=== PATIENT | female | born 1955 | race Caucasian/White ===

== ENCOUNTER 2022-07-28 07:54 | Outpatient (CLI) | payer MEDICARE, BC, SELFPAY ==
--- NOTE | 2022-07-28 08:15 | CRLHL7_ITS ---
For Patients: As a result of the Century Cures Act, medical imaging exams and procedure reports are released immediately into your electronic medical record. You may view this report before your referring provider. If you have questions, please contact your health care provider. Technique: Double-contrast esophagram performed after the uneventful administration of effervescent crystals and thick barium followed by thin barium. Fluoroscopy time 1 minute 23 second. Indication: Comparison: None. Findings: Esophagus: Mild decreased esophageal motility. No stricture or mass. No inflammation. Gastroesophageal reflux: Small sliding hernia with mild spontaneous reflux. Impression: Small sliding hiatal hernia with mild spontaneous reflux and mild esophageal dysmotility. Dictated by Albino An MD @ 07/28/2022 10:19:51 AM (Electronically Signed)
== END 2022-07-28 07:55 | disposition home or self-care (01) ==
PROVIDERS: PCP Internal Medicine; Visit Provider Surgery
DX: R13.10 Dysphagia, unspecified (principal); R11.2 Nausea with vomiting, unspecified; K21.9 Gastro-esophageal reflux disease without esophagitis; K44.9 Diaphragmatic hernia without obstruction or gangrene
CPT/HCPCS: 74221

== ENCOUNTER 2023-07-20 13:09 | Outpatient (CLI) | payer OTHER, MEDICARE, BC, SELFPAY ==
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
--- OUTSIDE RECORDS SUMMARY | 2023-08-02 17:20 | XMS_ITS | Encounter Summary ---
Author Name Unknown Organization [facility] Address [address] [place] [address] Phone Care Team Providers Care Supervisor Diagnostic Name Role Phone Unavailable Primary Care Provider Unavailabl e Encounter Details Date Type Department Care Team Description 08/02/2023 Documentation Only [facility] [address] [address] Salome Love, PANhan [address] [place] [address] Social History Tobacco Use Types Packs/Day Years [...] Coronavirus/COVID-19? No / Unsure 08/02/2023 9:13 AM CABLE INSTALLER REPAIRER documented as of this encounter Plan of Treatment Not on file documented as of this encounter Visit Diagnoses Not on filedocumented in this encounter Additional Health Concerns Infection Onset Date Last Indicated Resolved Time SARS-CoV-2 07/20/2023 07/20/2023 documented as of this encounter
--- OUTSIDE RECORDS SUMMARY | 2023-08-02 17:20 | XMS_ITS | Encounter Summary ---
Author Name Unknown Organization [facility] Address [address] [place] [address] Phone Care Team Providers Care Seam Press Operator Name Role Phone Unavailable Primary Care Provider Unavailabl e Encounter Details Date Type Department Care Team Description 08/02/2023 9:46 AM [facility] Hospital Encounter [facility] [address] [phone] Salome Love, PANhan [address] [place] [address] Arrived Discharge Disposition: Discharged to home or self [...] Coronavirus/COVID-19? No / Unsure 08/02/2023 9:13 AM PLASTER MECHANIC documented as of this encounter Plan of Treatment Pending Results Name Type Priority Associated Diagnoses Date /Time XR SPINE CERVICAL FLEX/EXT Imaging Routine Injury of neck, subsequent encounter 08/02/2023 9:55 AM PLASTER MECHANIC documented as of this encounter Procedures Procedure Name Priority Date/Time Associated Diagnosis Comments XR SPINE CERVICAL FLEX/EXT Routine 08/02/2023 9:55 AM PLASTER MECHANIC Injury of neck, subsequent encounter Procedure Note - Chito Michel MD / Baltazar Garnett MD - 08/02/2023 9:55 AM CSTThis note is in progress. Technique: XR SPINE CERVICAL FLEX/EXT Indication: c-spine clearance Comparison: Radiographs from 08/02/2023 and 07/21/2023 Findings: Stable grade 1 anterolisthesis of C3 on C4, stable minimalanterolisthesis of C4 on C5. Stable minimal retrolisthesis of C5 on C6.Stable vertebral alignment with no change in grade of anterolisthesis orretrolisthesis between flexion and extension. Diffuse degenerative changesmost notable for moderate disc space narrowing at C4-5 and C5-6 withdiffuse osteophytic spurring.Tiny metallic foreign bodies overlying themandible. IMPRESSION Impression: Stable anterolisthesis of C3 on C4 and C4 on C5, stableretrolisthesis of C5 on C6. No change in alignment between flexion andextension. Reading Radiologist: Chito Michel Reading Resident: Baltazar Garnett documented in this encounter Visit Diagnoses Diagnosis Injury of neck, subsequent encounter documented in this encounter Additional Health Concerns Infection Onset Date Last Indicated Resolved Time SARS-CoV-2 07/20/2023 07/20/2023 documented as of this encounter
--- OUTSIDE RECORDS SUMMARY | 2023-08-02 17:20 | XMS_ITS | Encounter Summary ---
Author Name Unknown Organization [facility] Address [address] [place] [id number] Phone Care Team Providers Care Adult Secondary Education Instructor Name Role Phone Unavailable Primary Care Provider Unavailabl e Encounter Details Date Type Department Care Team Description 08/02/2023 Travel Social History Tobacco Use Types Packs/Day Years [...] Coronavirus/COVID-19? No / Unsure 08/02/2023 9:13 AM HAND DRAWER IN documented as of this encounter Plan of Treatment Not on file documented as of this encounter Visit Diagnoses Not on filedocumented in this encounter Additional Health Concerns Infection Onset Date Last Indicated Resolved Time SARS-CoV-2 07/20/2023 07/20/2023 documented as of this encounter
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
--- OUTSIDE RECORDS SUMMARY | 2023-08-02 17:20 | XMS_ITS | Clinical Summary ---
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 in the right lower lobe and rightmiddle lobe, with mild septal thickening. No effusion or pneumothorax isseen. Abdomen and pelvis: No evidence for hepatic or splenic injury. Patient isstatus post cholecystectomy, with mild biliary dilatation that is likelyrelated to the postcholecystectomy state. Adrenals and pancreas are withinnormal limits. Punctate nonobstructing left kidney stone. Bilateral kidney cysts. Noevidence for kidney injury. No mesenteric hematoma, or abnormal bowel wall thickening. No free air orfree fluid. Mild colonic diverticulosis, without diverticulitis. Normalappendix. Normal caliber aorta with patent celiac artery and SMA. Skeletal structures: Dedicated spinal reconstructions are obtained andinterpreted separately. No acute chest wall or pelvic fracture is seen. IMPRESSION IMPRESSION: 1. No acute traumatic abnormalities. Spinal reconstructions areinterpreted separately. 3. Mild diffuse bronchial wall thickening, suggestive of COPD or asthma.Retained bronchial debris and infiltrates in the right lower lobe andright middle lobe are concerning for superimposed pneumonia. 3. Right upper lobe nodular scarring. If prior exams are not available, afollow- up chest CT in 6 months is suggested. 4. Incidental findings in the abdomen include punctate left kidney stone,colonic diverticulosis, and postcholecystectomy biliary dilatation. Reading Radiologist: Antonio Espinal Iker Horowitz MD RAD CT BODY * CT SPINE THORACIC NO IV CON (07/20/2023 2:53 PM [employer]) Anatomical Region Laterality Modality Thoracic Spine Computed Tomogra phy 07/20/2023 3:05 PM [employer] Impressions 07/20/2023 5:05 PM [employer] Impression: 1. No acute fracture/dislocation of the thoracic spine. 2. No acute fracture/dislocation of the lumbar spine. I have personally reviewed the image(s) and initial interpretation, and I agree with the findings as documented by the resident/fellow. Reading Radiologist: eClso Crawford Reading Resident: Rimma Sheikh Narrative 07/20/2023 5:05 PM [employer] Thoracic and Lumbar Spine CT Reconstructions Indication: ??Trauma (STAB) ??. Comparison: ??None Technique: Images of the thoracic and lumbar spine with axial, sagittal and coronal reconstructions were obtained from a CT examination of ??the chest and abdomen. Images were reviewed in a bone window. This is not additional radiation; these images are reconstructed from the chest/abdomen/pelvis CT Findings: Please refer to the chest/abdomen CT report for the findings on those examinations. Thoracic spine: There is no fracture or dislocation of the thoracic vertebrae. Mild right deviation of the mid thoracic spine, otherwise alignment is within normal limits. The spinal canal and the neural foramina bilaterally are grossly patent at all visualized levels. ??The visualized prevertebral and paravertebral soft tissues are unremarkable. Mild multilevel degenerative endplate changes and anterior osteophytes. Lumbar spine: There is no fracture or dislocation of the lumbar vertebrae. Alignment of the lumbar vertebrae appears within normal limits. There is no significant disc height narrowing at any level. ??The visualized prevertebral and paravertebral soft tissues are unremarkable. Probable perineural cysts bilaterally at S2. Partially visualized mild cervical spondylosis, please refer to dedicated cervical C-spine for further characterization. Findings on a level by level basis are as follows: T12-L1: No focal abnormality. L1-L2: ??No focal abnormality. L2-3: ??No focal abnormality. ?? L3-4: ??No focal abnormality. L4-5: No focal abnormality. ?? L5-S1: No focal abnormality. Procedure Note Celso Crawford MD - 07/20/[address] Reconstructions Indication: Trauma (STAB) . Comparison: None Technique: Images of the thoracic and lumbar spine with axial, sagittaland coronal reconstructions were obtained from a CT examination of thechest and abdomen. Images were reviewed in a bone window. This is notadditional radiation; these images are reconstructed from thechest/abdomen/pelvis CT Findings: Please refer to the chest/abdomen CT report for the findings on thoseexaminations. Thoracic spine: There is no fracture or dislocation of the thoracicvertebrae. Mild right deviation of the mid thoracic spine, otherwisealignment is within normal limits. The spinal canal and the neuralforamina bilaterally are grossly patent at all visualized levels. Thevisualized prevertebral and paravertebral soft tissues are unremarkable.Mild multilevel degenerative endplate changes and anterior osteophytes. Lumbar spine: There is no fracture or dislocation of the lumbar vertebrae.Alignment of the lumbar vertebrae appears within normal limits. There isno significant disc height narrowing at any level. The visualizedprevertebral and paravertebral soft tissues are unremarkable. Probableperineural cysts bilaterally at S2. Partially visualized mild cervical spondylosis, please refer to dedicatedcervical C-spine for further characterization. Findings on a level by level basis are as follows: T12-L1: No focal abnormality. L1-L2: No focal abnormality. L2-3: No focal abnormality. L3-4: No focal abnormality. L4-5: No focal abnormality. L5-S1: No focal abnormality. IMPRESSION Impression: 1. No acute fracture/dislocation of the thoracic spine. 2. No acute fracture/dislocation of the lumbar spine. I have personally reviewed the image(s) and initial interpretation, and Iagree with the findings as documented by the resident/fellow. Reading Radiologist: Celso Crawford Resident: Rimma Sheikh Iker Horowitz MD RAD CT NEURO * CT SPINE LUMBAR NO IV CON (07/20/2023 2:53 PM [employer]) Anatomical Region Laterality Modality Lumbar Spine Computed Tomogra phy 07/20/2023 3:05 PM [employer] Impressions 07/20/2023 5:05 PM [employer] Impression: 1. No acute fracture/dislocation of the thoracic spine. 2. No acute fracture/dislocation of the lumbar spine. I have personally reviewed the image(s) and initial interpretation, and I agree with the findings as documented by the resident/fellow. Reading Radiologist: Celso Crawford Resident: Rimma Sheikh Narrative 07/20/2023 5:05 PM [employer] Thoracic and Lumbar Spine CT Reconstructions Indication: ??Trauma (STAB) ??. Comparison: ??None Technique: Images of the thoracic and lumbar spine with axial, sagittal and coronal reconstructions were obtained from a CT examination of ??the chest and abdomen. Images were reviewed in a bone window. This is not additional radiation; these images are reconstructed from the chest/abdomen/pelvis CT Findings: Please refer to the chest/abdomen CT report for the findings on those examinations. Thoracic spine: There is no fracture or dislocation of the thoracic vertebrae. Mild right deviation of the mid thoracic spine, otherwise alignment is within normal limits. The spinal canal and the neural foramina bilaterally are grossly patent at all visualized levels. ??The visualized prevertebral and paravertebral soft tissues are unremarkable. Mild multilevel degenerative endplate changes and anterior osteophytes. Lumbar spine: There is no fracture or dislocation of the lumbar vertebrae. Alignment of the lumbar vertebrae appears within normal limits. There is no significant disc height narrowing at any level. ??The visualized prevertebral and paravertebral soft tissues are unremarkable. Probable perineural cysts bilaterally at S2. Partially visualized mild cervical spondylosis, please refer to dedicated cervical C-spine for further characterization. Findings on a level by level basis are as follows: T12-L1: No focal abnormality. L1-L2: ??No focal abnormality. L2-3: ??No focal abnormality. ?? L3-4: ??No focal abnormality. L4-5: No focal abnormality. ?? L5-S1: No focal abnormality. Procedure Note Celso Crawford MD - 07/20/[address] Reconstructions Indication: Trauma (STAB) . Comparison: None Technique: Images of the thoracic and lumbar spine with axial, sagittaland coronal reconstructions were obtained from a CT examination of thechest and abdomen. Images were reviewed in a bone window. This is notadditional radiation; these images are reconstructed from thechest/abdomen/pelvis CT Findings: Please refer to the chest/abdomen CT report for the findings on thoseexaminations. Thoracic spine: There is no fracture or dislocation of the thoracicvertebrae. Mild right deviation of the mid thoracic spine, otherwisealignment is within normal limits. The spinal canal and the neuralforamina bilaterally are grossly patent at all visualized levels. Thevisualized prevertebral and paravertebral soft tissues are unremarkable.Mild multilevel degenerative endplate changes and anterior osteophytes. Lumbar spine: There is no fracture or dislocation of the lumbar vertebrae.Alignment of the lumbar vertebrae appears within normal limits. There isno significant disc height narrowing at any level. The visualizedprevertebral and paravertebral soft tissues are unremarkable. Probableperineural cysts bilaterally at S2. Partially visualized mild cervical spondylosis, please refer to dedicatedcervical C-spine for further characterization. Findings on a level by level basis are as follows: T12-L1: No focal abnormality. L1-L2: No focal abnormality. L2-3: No focal abnormality. L3-4: No focal abnormality. L4-5: No focal abnormality. L5-S1: No focal abnormality. IMPRESSION Impression: 1. No acute fracture/dislocation of the thoracic spine. 2. No acute fracture/dislocation of the lumbar spine. I have personally reviewed the image(s) and initial interpretation, and Iagree with the findings as documented by the resident/fellow. Reading Radiologist: Celso Crawford Reading Resident: Rimma Sheikh Iker Horowitz MD RAD CT NEURO * CT SPINE CERVICAL NO IV CON (07/20/2023 2:53 PM [employer]) Anatomical Region Laterality Modality Cervical Spine Computed Tomogra phy 07/20/2023 2:52 PM [employer] Impressions 07/20/2023 3:26 PM [employer]PER[employer] Impression: ?? 1. No acute fracture or subluxation of the cervical vertebrae. 2. Multilevel cervical spondylosis without significant spinal canal narrowing; multilevel neural foraminal narrowing is of varying degrees of significance, as described. I have personally reviewed the image(s) and initial interpretation, and I agree with the findings as documented by the resident/fellow. Reading Radiologist: Volodymyr Dunbar Resident: Rimma Sheikh 07/20/2023 3:26 PM [employer] Exam: Cervical spine CT without contrast, 07/20/2023 Indication: Trauma (STAB). Comparison: ??None. Technique: Using multidetector thin collimation helical acquisition technique, axial, coronal and sagittal reconstructed CT images were obtained through the cervical spine without intravenous contrast. Images were reviewed in bone and soft tissue windows. Radiation dose: Total DLP = 80.9 mGy*cm. ?? Findings: No acute fracture, traumatic malalignment, or abnormal prevertebral soft tissue swelling. Chronic mild anterior wedging of the T3 vertebral body. Mild retrolisthesis of C5 over C6 and trace anterior spondylolisthesis of C3 over C4 and of C6 over C7 through T2 over T3. Multilevel disc space narrowing, endplate spurring, uncovertebral spurring, and degenerative changes of the facet joints. Atlantodental spurring. The findings on a level by level basis are as follows: C2-3: ??Minimal bilateral neural foraminal narrowing. No convincing spinal canal narrowing. C3-4: ??Mild bilateral neural foraminal narrowing. No convincing spinal canal narrowing. C4-5: ??At least moderate left neural foraminal narrowing. Minimal right neural foraminal narrowing. No spinal canal narrowing. C5-6: ??Mild right and mild to moderate left neural foraminal narrowing. No spinal canal narrowing. C6-7: ??Mild to moderate left neural foraminal narrowing. Minimal spinal canal narrowing. C7-T1: Minimal bilateral neural foraminal narrowing. No convincing spinal canal narrowing. No abnormality of the visualized paraspinous tissues. Scattered nodules in the upper lobes; nodular right apical atelectasis/scarring; please refer to the separately dictated report of a concurrently acquired CT of the chest, abdomen, pelvis for further details. Procedure Note Volodymyr Dunbar Harry, DO - 07/20/2023 Exam: Cervical spine CT without contrast, 07/20/2023 Indication: Trauma (STAB). Comparison: None. Technique: Using multidetector thin collimation helical acquisitiontechnique, axial, coronal and sagittal reconstructed CT images wereobtained through the cervical spine without intravenous contrast. Imageswere reviewed in bone and soft tissue windows. Radiation dose: Total DLP = 80.9 mGy*cm. Findings: No acute fracture, traumatic malalignment, or abnormalprevertebral soft tissue swelling. Chronic mild anterior wedging of the S2tawexdcdv body. Mild retrolisthesis of C5 over C6 and trace anteriorspondylolisthesis of C3 over C4 and of C6 over C7 through T2 over T3.Multilevel disc space narrowing, endplate spurring, uncovertebralspurring, and degenerative changes of the facet joints. Atlantodentalspurring. The findings on a level by level basis are as follows: C2-3: Minimal bilateral neural foraminal narrowing. No convincing spinalcanal narrowing. C3-4: Mild bilateral neural foraminal narrowing. No convincing spinalcanal narrowing. C4-5: At least moderate left neural foraminal narrowing. Minimal rightneural foraminal narrowing. No spinal canal narrowing. C5-6: Mild right and mild to moderate left neural foraminal narrowing. Nospinal canal narrowing. C6-7: Mild to moderate left neural foraminal narrowing. Minimal spinalcanal narrowing. C7-T1: Minimal bilateral neural foraminal narrowing. No convincing spinalcanal narrowing. No abnormality of the visualized paraspinous tissues. Scattered nodules inthe upper lobes; nodular right apical atelectasis/scarring; please referto the separately dictated report of a concurrently acquired CT of thechest, abdomen, pelvis for further details. IMPRESSION Impression: 1. No acute fracture or subluxation of the cervical vertebrae. 2. Multilevel cervical spondylosis without significant spinal canalnarrowing; multilevel neural foraminal narrowing is of varying degrees ofsignificance, as described. I have personally reviewed the image(s) and initial interpretation, and Iagree with the findings as documented by the resident/fellow. Reading Radiologist: Volodymyr Dunbar Resident: Rimma Sheikh Iker Horowitz MD RAD CT NEURO * CT HEAD NO IV CONTRAST (07/20/2023 2:53 PM [employer]) Anatomical Region Laterality Modality Skull Computed Tomogra phy 07/20/2023 2:45 PM [employer] OPER[employer] Impressions 07/20/2023 3:04 PM [employer] OPER[employer] Impression: No acute intracranial pathology. Marco Traumatic Brain Injury Scale: Diffuse Injury 1 MARCO DIAGNOSTIC CATEGORIES OF ABNORMALITIES VISUALIZED ON CT SCANNING FOR TRAUMATIC BRAIN INJURY: Diffuse Injury 1: No visible intracranial pathology seen on CT scan. Diffuse Injury 2: Cisterns are present with shift 0-5 mm and/or lesion densities present. No high or mixed density lesion >25ml. May include bone fragments and foreign bodies. Diffuse Injury 3 (swelling): Cisterns compressed or absent with shift 0-5mm. No high or mixed density lesion > 25ml. ? Diffuse Injury 4 (shift): Shift > 5mm. No high or mixed density lesion > 25ml. Evacuated mass lesion: Any surgically evacuated lesion. ?? Non evacuated mass lesion: High or mixed-density lesion > 25ml. Not surgically evacuated. I have personally reviewed the image(s) and initial interpretation, and I agree with the findings as documented by the resident/fellow. Reading Radiologist: Sue Lopez Resident: Rimma Sheikh Narrative 07/20/2023 3:04 PM [employer] Indication: Trauma (STAB) ??. Comparison: none Technique: Axial thin section CT images through the brain were obtained from the base of the skull through the vertex without intravenous contrast and reviewed in brain, bone and subdural windows. Dose Total DLP = 1004.8 mGy.cm. ?? Findings: There is no evidence of intracranial hemorrhage, mass effect, midline shift or abnormal extraaxial fluid collection. There is no definite evidence of acute infarction. The ventricles and sulci appear appropriate for age. Peña-white differentiation is normal throughout both cerebral hemispheres. Empty sella phenomenon. The bony calvarium and the bones of the skull base appear normal. Review of visualized dentition does not reveal significant periapical dental disease. The visualized portions of the paranasal sinuses and the mastoid air cells are clear. Procedure Note Sue Lopez MD - 07/20/2023 Indication: Trauma (STAB) . Comparison: none Technique: Axial thin section CT images through the brain were obtainedfrom the base of the skull through the vertex without intravenous contrastand reviewed in brain, bone and subdural windows. Dose Total DLP = 1004.8 mGy.cm. Findings: There is no evidence of intracranial hemorrhage, mass effect,midline shift or abnormal extraaxial fluid collection. There is nodefinite evidence of acute infarction. The ventricles and sulci appearappropriate for age. Peña-white differentiation is normal throughout bothcerebral hemispheres. Empty sella phenomenon. The bony calvarium and the bones of the skull base appear normal. Reviewof visualized dentition does not reveal significant periapical dentaldisease. The visualized portions of the paranasal sinuses and the mastoidair cells are clear. IMPRESSION Impression: No acute intracranial pathology. Marco Traumatic Brain Injury Scale: Diffuse Injury 1 MARCO DIAGNOSTIC CATEGORIES OF ABNORMALITIES VISUALIZED ON CT SCANNINGFOR TRAUMATIC BRAIN INJURY: Diffuse Injury 1: No visible intracranial pathology seen on CT scan. Diffuse Injury 2: Cisterns are present with shift 0-5 mm and/or lesiondensities present. No high or mixed density lesion >25ml. May include bonefragments and foreign bodies. Diffuse Injury 3 (swelling): Cisterns compressed or absent with shift0-5mm. No high or mixed density lesion > 25ml. Diffuse Injury 4 (shift): Shift > 5mm. No high or mixed density lesion >25ml. Evacuated mass lesion: Any surgically evacuated lesion. Non evacuated mass lesion: High or mixed-density lesion > 25ml. Notsurgically evacuated. I have personally reviewed the image(s) and initial interpretation, and Iagree with the findings as documented by the resident/fellow. Reading Radiologist: Sue Lopez Reading Resident: Rimma Sheikh Iker Horowitz MD RAD CT NEURO * (ABNORMAL) ED CHEMISTRY LABS(NA,K,CL,CO2,GLU,CREAT,CA-IONIZED,ANION GAP) (07/20/2023 2:39 PM [employer]) Pathologist [facility] Sodium 143 135 - 148 mEq/L [facility] Chloride 108 92 - 108 mEq/L [facility] AnGap 8 8 - 16 mEq/L [facility] Glucose 87 70 - 100 mg/dL [facility] ICA, Actual 4.80 4.40 - 5.20 mg/dL [facility] ICA, pH Corrected 4.59 4.40 - 5.20 mg/dL [facility] Creatinine 1.38(H) 0.50 - 1.00 mg/dL [facility] BICARB 27(H) 22 - 26 mEq/L [facility] eGFR (2020 CKD-EPI) 41(L) >=60 ml/min/1.7 3m2 [facility] Comment: The estimated glomerular filtration rate (eGFR) was calculated using the CKD-EPI 2020 creatinine equation, which does not include race as a factor. This equation is validated in individuals 18 years of age and older, and eGFR is normalized to a body surface area of 1.73m^2. Potassium 3.7 3.5 - 5.3 mEq/L [facility] Blood 07/20/2023 2:39 PM [employer] 07/20/2023 2:41 PM [employer] Iker Horowitz MD LABORATORY [facility] [place] [address] * ED HEMOGLOBIN TOTAL (ED ONLY) (07/20/2023 2:39 PM CHLORINE PLANT OPERATOR) Pathologist [facility] Hgb 13.0 11.5 - 15.7 g/dL [facility] Blood 07/20/2023 2:39 PM CHLORINE PLANT OPERATOR 07/20/2023 2:41 PM CHLORINE PLANT OPERATOR Iker Horowitz MD LABORATORY [facility] [place] [address] * ED INR (07/20/2023 2:35 PM CHLORINE PLANT OPERATOR) Pathologist [facility] ED INR 1.1 0.8 - 1.1 [facility] Comment: Warfarin Therapeutic Range: Standard Intensity: 2.0 - 3.0 High Intensity: 2.5 - 3.5 Blood 07/20/2023 2:35 PM CHLORINE PLANT OPERATOR 07/20/2023 2:40 PM CHLORINE PLANT OPERATOR Iker Horowitz MD LABORATORY Performing Organization Address [facility] de Phone Number [address] [address] * EXTRA TUBE - LIGHT GREEN (07/20/2023 2:35 PM CHLORINE PLANT OPERATOR) LIGHT GREEN TUBE Stored [facility] Comment:Green tubes ([place] Heparin) are stored in the lab for 3 days from the collection date. Blood 07/20/2023 2:35 PM CHLORINE PLANT OPERATOR 07/20/2023 2:41 PM CHLORINE PLANT OPERATOR Iker Horowitz MD LABORATORY Performing Organization Address [facility] de Phone Number [address] [address] * EXTRA TUBE - PEÑA (07/20/2023 2:35 PM CHLORINE PLANT OPERATOR) PEÑA TUBE Stored [facility] Comment:Peña top (Sodium alysia uride) tubes are stored in the lab for 3 days from the collection date. Blood 07/20/2023 2:35 PM CHLORINE PLANT OPERATOR 07/20/2023 2:41 PM CHLORINE PLANT OPERATOR Iker Horowitz MD LABORATORY Performing Organization Address [facility] de Phone Number [address] [address] * EXTRA TUBE - SST (07/20/2023 2:35 PM CHLORINE PLANT OPERATOR) SST TUBE Stored [facility] Comment:SST tubes (Serum Sep arator) are stored in the lab for 3 days from the collection date. Blood 07/20/2023 2:35 PM CHLORINE PLANT OPERATOR 07/20/2023 2:41 PM CHLORINE PLANT OPERATOR Iker Horowitz MD LABORATORY Performing Organization Address [facility]/ZIP Co de Phone Number [facility] [address] [address] * (ABNORMAL) CBC WITH PLTS/AUTO DIFF (07/20/2023 2:35 PM CHLORINE PLANT OPERATOR) WBC 8.67 4.00 - 10.00 k/cmm [facility] RBC 4.89 3.90 - 5.20 m/cmm [facility] Hgb 14.3 11.5 - 15.7 g/dL [facility] Hematocrit 45.5(H) 34.0 - 45.0 % [facility] MCV 93.0 80.0 - 100.0 fL [facility] MCH 29.2 25.0 - 32.0 pg [facility] MCHC 31.4 31.0 - 36.0 g/dL [facility] RDW 14.2 11.5 - 14.5 % [facility] Plt 241 150 - 400 k/cmm [facility] MPV 9.9 6.5 - 12.5 fL [facility] Automated Abs Neutrophil 6.29 1.70 - 6.50 k/cmm [facility] Comment:Preliminary ANC, Fin al Result to Follow Abs Immature Granulocyte 0.11(H) 0.00 - 0.09 k/cmm [facility] Comment:The Immature Granulo cyte Absolute count contains metamyelocytes and myelocytes. Abs Neutrophil 6.29 1.70 - 6.50 k/cmm [facility] Abs Lymphocyte 1.16 0.80 - 4.00 k/cmm [facility] Abs Monocyte 1.06(H) 0.20 - 1.00 k/cmm [facility] Abs Eosinophil 0.01 0.00 - 0.60 k/cmm [facility] Abs Basophil 0.04 0.00 - 0.20 k/cmm [facility] Toxic Gran Present [facility] Blood 07/20/2023 2:35 PM CHLORINE PLANT OPERATOR 07/20/2023 2:53 PM CHLORINE PLANT OPERATOR Iker Horowitz MD LABORATORY Performing Organization Address [facility]/ZIP Co de Phone Number [facility] [address] [address] * (ABNORMAL) FIBRINOGEN (07/20/2023 2:35 PM CHLORINE PLANT OPERATOR) Fibrinogen 775(H) 200 - 400 mg/dL [facility] Blood 07/20/2023 2:35 PM CHLORINE PLANT OPERATOR 07/20/2023 2:53 PM CHLORINE PLANT OPERATOR Iker Horowitz MD LABORATORY Performing Organization Address [facility] Co de Phone Number [address] [address] * (ABNORMAL) PTT (APTT) (07/20/2023 2:35 PM CHLORINE PLANT OPERATOR) APTT 41.6(H) 25.0 - 37.0 sec [facility] Blood 07/20/2023 2:35 PM CHLORINE PLANT OPERATOR 07/20/2023 2:53 PM CHLORINE PLANT OPERATOR Iker Horowitz MD LABORATORY Performing Organization Address [facility] de Phone Number [address] [address] * PRECAUTIONARY TUBE (07/20/2023 2:25 PM CHLORINE PLANT OPERATOR) Prec Tube Precautionary Blood Bank Specimen Received. [facility] Blood 07/20/2023 2:25 PM CHLORINE PLANT OPERATOR 07/20/2023 2:45 PM CHLORINE PLANT OPERATOR Iker Horowtiz MD LAB TRANSFUSION SERV ICES Performing Organization Address [facility] Co de Phone Number [address] [address] * ED US CRITICAL CARE (07/20/2023 2:18 PM CHLORINE PLANT OPERATOR) Anatomical Region Laterality Modality Ultrasound Narrative 07/20/2023 4:02 PM CHLORINE PLANT OPERATOR ED Critical Care Resuscitative Ultrasound ED Trauma eFAST Ultrasound Indications: Suspicion of Abdomen Fluid/Blood, Suspicion of Pneumothorax/Hemothorax, and Other general symptoms and signs Window: Cardiac Window, Heptorenal Window, Perisplenic Window, Pelvic Window, and Thoracic Window Findings: No Pericardial Effusion identified, No Free Intraperitoneal Fluid identified, No Pleural Effusion identified, and Lung Sliding Present Bilaterally Impression: No Pericardial Effusion identified, No Free Intraperitoneal Fluid identified, No Pleural Effusion identified, and No Pneumothorax Identified Felecia Daly MD, 07/20/2023 2:51 PM ED Attending Ultrasound Note: I have personally reviewed the image(s) and initial interpretation, and I agree with the findings as documented. Iker Horowitz MD, 07/20/2023 4:02 PM Iker Horowitz MD RAD ED ULT from Last 3 Months Additional Health Concerns Infection Onset Date Last Indicated SARS-CoV-2 07/20/2023 07/20/2023 Advance Directives For more information, please contact: [phone] Latest Code Status on File Code Status Date Activated Date Inactivated Comments Full Code 07/20/2023 5:04 PM 07/25/2023 4:13 PM Question Answer Comments Does the Patient have prefer ences regarding life sustaining measures (these options only apply when the patient has a pulse): No Discussed Code Status With Whom? Not discussed
--- OUTSIDE RECORDS SUMMARY | 2023-08-02 17:21 | XMS_ITS | Encounter Summary ---
Author Name Unknown Organization [facility] Address [address] [place] [phone] Phone Care Team Providers Care Art Educator Name Role Phone Unavailable Primary Care Provider Unavailabl e Encounter Details Date Type Department Care Team Description 07/21/2023 Orders Only Unspecified Department [place] Unknown, Provider Compression fracture of cervical vertebra with routine healing, unspecified cervical vertebral level (Primary Dx) Social History Tobacco Use Types Packs/Day Years Used Date Smoking Tobacco: Never Assessed Humiliation, Afraid, Rape, and Kick questionnair e [...] suspected to have Coronavirus/COVID-19? No / Unsure 07/20/2023 5:12 PM SENIOR CLINICIAN documented as of this encounter Plan of Treatment Not on file documented as of this encounter Procedures Procedure Name Priority Date/Time Associated Diagnosis Comments TELEMETRY STRIPS 07/21/2023 2:56 PM SENIOR CLINICIAN documented in this encounter Results * XR SPINE CERVICAL 3 VW UPRIGHT (08/02/2023 9:10 AM SENIOR CLINICIAN) Anatomical Region Laterality Modality Cervical Spine Digital Radiogra phy 08/02/2023 9:10 AM SENIOR CLINICIAN Impressions 08/02/2023 9:17 AM SENIOR CLINICIAN Impression: Apparent slight increase anterolisthesis of C3 on C4 and decrease retrolisthesis of C5 on C6 when compared to previous examination. Reading Radiologist: Holley Shabazz Narrative 08/02/2023 9:17 AM SENIOR CLINICIAN Technique: XR SPINE CERVICAL 3 VW UPRIGHT Indication: f/u NSGY clinic; cervical compression fx, Eyak J ?? Comparison: 07/21/2023 Findings: Apparent slight [...] Indication: f/u NSGY clinic; cervical compression fx, Eyak J Comparison: 07/21/2023 Findings: Apparent slight increased [...] previous examination. Reading Radiologist: Holley Shabazz Dony Trery MD RAD XRAY * TELEMETRY STRIPS (07/21/2023 2:56 PM SENIOR CLINICIAN) Narrative 07/21/2023 2:56 PM SENIOR CLINICIAN Ordered by an unspecified provider. Provider Unknown RAD ECHO documented in this encounter Visit Diagnoses Diagnosis Compression fracture of cervical vertebra with routine healing, unspecified cervical vertebral level- Primary Compression fracture of cervical vertebra with routine healing, unspecified cervical vertebral level documented in this encounter Additional Health Concerns Infection Onset Date Last Indicated Resolved Time SARS-CoV-2 07/20/2023 07/20/2023 documented as of this encounter
--- OUTSIDE RECORDS SUMMARY | 2023-08-02 17:21 | XMS_ITS | Encounter Summary ---
Author Name Unknown Organization [facility] Address [address] [place] [address] Phone Care Team Providers Care Emergency Management System Director Name Role Phone Unavailable Primary Care Provider Unavailabl e Encounter Details Date Type Department Care Team Description 07/21/2023 Orders Only Unspecified Department [place] Unknown, Provider Social History Tobacco Use Types Packs/Day Years [...] Coronavirus/COVID-19? No / Unsure 07/20/2023 5:12 PM CARVER AND CHECKERER SPECIALS documented as of this encounter Plan of Treatment Not on file documented as of this encounter Procedures Procedure Name Priority Date/Time Associated Diagnosis Comments TELEMETRY STRIPS 07/21/2023 1:02 AM CARVER AND CHECKERER SPECIALS documented in this encounter Results * TELEMETRY STRIPS (07/21/2023 1:02 AM CARVER AND CHECKERER SPECIALS) Narrative 07/21/2023 1:02 AM CARVER AND CHECKERER SPECIALS Ordered by an unspecified provider. Provider Unknown RAD ECHO documented in this encounter Visit Diagnoses Not on filedocumented in this encounter Additional Health Concerns Infection Onset Date Last Indicated Resolved Time SARS-CoV-2 07/20/2023 07/20/2023 documented as of this encounter
--- OUTSIDE RECORDS SUMMARY | 2023-08-02 17:21 | XMS_ITS | Encounter Summary ---
Author Name Unknown Organization [facility] Address [address] [place] [id number] Phone Care Team Providers Care Lead Software Architect Name Role Phone Unavailable Primary Care Provider Unavailabl e Encounter Details Date Type Department Care Team Description 07/20/2023 Travel Social History Tobacco Use Types Packs/Day [...] Coronavirus/COVID-19? No / Unsure 07/20/2023 5:12 PM MACHINE ETCHER documented as of this encounter Plan of Treatment Not on file documented as of this encounter Visit Diagnoses Not on filedocumented in this encounter Additional Health Concerns Infection Onset Date Last Indicated Resolved Time SARS-CoV-2 Rule-Out 07/20/2023 07/20/2023 07/20/20 4:49 PM MACHINE ETCHER SARS-CoV-2 07/20/2023 07/20/2023 documented as of this encounter
--- OUTSIDE RECORDS SUMMARY | 2023-08-02 17:21 | XMS_ITS | Encounter Summary ---
Author Name Unknown Organization [facility] Address [address] [place] [address] Phone Care Team Providers Care Adoption Coordinator Name Role Phone Unavailable Primary Care Provider Unavailabl e Encounter Details Date Type Department Care Team Description 07/20/2023 Orders Only Unspecified Department [place] Unknown, [...] Coronavirus/COVID-19? No / Unsure 07/20/2023 5:12 PM DAIRY CHEMIST documented as of this encounter Plan of Treatment Not on file documented as of this encounter Procedures Procedure Name Priority Date/Time Associated Diagnosis Comments TELEMETRY STRIPS 07/20/2023 6:46 PM DAIRY CHEMIST documented in this encounter Results * TELEMETRY STRIPS (07/20/2023 6:46 PM DAIRY CHEMIST) Narrative 07/20/2023 6:46 PM DAIRY CHEMIST Ordered by an unspecified provider. Provider Unknown RAD ECHO documented in this encounter Visit Diagnoses Not on filedocumented in this encounter Additional Health Concerns Infection Onset Date Last Indicated Resolved Time SARS-CoV-2 Rule-Out 07/20/2023 07/20/2023 07/20/20 23 4:49 PM DAIRY CHEMIST SARS-CoV-2 07/20/2023 07/20/2023 documented as of this encounter
--- OUTSIDE RECORDS SUMMARY | 2023-08-02 17:21 | XMS_ITS | Encounter Summary ---
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 prescription pain medicine contains acetaminophen. -- Do not take more than one medicine that contains acetaminophen at a time. -- Do not take more of an acetaminophen-containing medicine than directed by your provider. Adults should not take more than 2 tablets at a time and no more than 3000 mg in a 24 hour period. For children, see label or package information or ask a pharmacist, and do not give more than 5 doses in 24 hours. -- Do not drink alcohol when taking medicines that contain acetaminophen. -- Stop taking your medication and seek medical help immediately if you: ---- Think you have taken more acetaminophen than directed ---- Have an allergic reaction such as swelling of the face, mouth, and throat, difficulty breathing, itching, or rash FOLLOW-UP APPOINTMENTS AND REFERRALS: Follow-up with Neurosurgery in 2 weeks TBI clinic referral Home Health referral HOME CARE REFERRALS AND INSTRUCTIONS: None READMISSION PLANNED WITHIN 30 DAYS OF HOSPITAL DISCHARGE: No I have personally spent more than 30 minutes in discharge coordination for this patient. Wendy Guardado PA-C, 07/25/2023 7:27 AM [employer] CELL[employer]ER documented in this encounter Discharge Instructions * Appointments* Shey Strong RN - 07/25/2023 7:16 AM MACHINE B[employer]ER AND CELLOPHANER To schedule or change an appointment: [phone] For questions about the TBI Outpatient Program: [phone] The TBI Outpatient Program is located on the 3rd floor of the [facility] ([facility]) located at [address] [place] [address]. Neurosurgery Clinic follow up made for 08/02/23 @ 09:30 AM Neurosurgery Clinic [phone] FOLLOW-UP Future Appointments Date Time Provider Department Center 08/02/2023 9:30 AM Dony Terry MD [facility] * Discharge Instr - Physical Therapy* Nicola Rose Chi, PT - 07/25/2023 10:57 AM MACH[employer] CELL[employer]ER The following are the precautions you need to follow given your recent neck surgery/injury. Please continue to follow these instructions until they are discontinued by your surgeon: -Do not lift/carry anything that is heavier than 5 to 10 lbs. -Avoid raising your arms above shoulder height because this will increase stress on your neck. -Avoid doing activities involving repeated pushing/pulling with your arms. -You must wear the neck collar at ALL times. -AVOID turning your neck. Make sure that whatever you do, your nose down to toes are all facing in the same direction for the well being of your neck. -AVOID bending your neck. -When lying on your back, be sure to use NO MORE than 1 pillow under your head. The following are symptoms you might experience as a result of your head injury: Unexplained fatigue- make sure you rest as need be, Nausea, Vomiting, Irritability, Double Vision, Light Sensitivity, Dizziness, Difficulties Concentrating, Getting easily Distracted, Memory problems, Vertigo (eg seeing things spinning), etc... IF you start seeing things spinning, particularly when changing positions- like when rolling in bed, getting in/out of bed or going sit to/from stand, contact your doctor and get a referral to see an outpatient vestibular physical therapist. These therapists can help resolve the vertigo usually within a few treatment sessions. Avoid doing activities that would cause your brain to get jostled around inside your skull like: -Running, Jogging, Jumping or Hopping. -Riding on rough terrain like going on an ATV ride or going boating on choppy skelton -Going trampolining Proper height for a walking device (e.g. Walker or cane). When you stand up, the top of the handle should be in line with your wrist. When doing the stairs, go up/down 1 foot at a time. Please make sure you have help in the stairs, make sure you wear the safety belt that we issued to you and make sure that your helper stands on the step BELOW you. -When going UP the stairs, your helper should stand BEHIND you. -When going DOWN the stairs, your helper should pin attacher FRONT of you. [employer] CE[employer]ER * Discharge Instr - Occupational Therapy* Erum Bailey OTR/Maikel - 07/23/2023 3:33 PM MACHINE [employer] AND CELL[employer]ER Images from the original note were not included. Traumatic Brain Injury Recommendations You have been diagnosed with a traumatic brain injury (TBI). TBI's can be mild, moderate or severe.A mild TBI is often called a concussion. Traumatic brain injuries can cause a variety of physical, cognitive, visual and emotional symptoms. It is important to understand these symptoms and how they can affect your ability to participate in daily activities. The following recommendations will help to keep you safe and promote recovery as you leave the hospital. Follow these recommendations until you are seen by providers in the TBI Outpatient Program: No driving No work or school (even if you skidway worker) No use of alcohol or drugs No strenuous exercise or contact sports (this includes running, bicycle riding, etc. Anything that causes you to sweat is too much activity) Things that you CAN do as long as they do not cause any new symptoms, or make symptoms you already have worse: Light activities like walking or stationary exercise bike with no sweating Short periods of screen time (phone, tablet, TV) Basic light household tasks (e.g. laundry, cooking) with frequent breaks or some help Follow-up Appointment: We recommend you follow-up in the TBI Outpatient Program a few weeks after you leave the hospital. If an appointment was not made for you, please call within one week. To schedule or change an appointment: [phone] For questions about the TBI Outpatient Program: [phone] The TBI Outpatient Program is located on the 3rd floor of the [facility] ([facility]) located at [address] [place] [address]. Common Signs and Symptoms of a Traumatic Brain Injury Symptoms after a TBI may show up immediately after the injury or sometimes develop over hours or days. Symptoms vary in how severe they are and the length of time that they last. Each person is different. This is very typical of TBI. Most symptoms will resolve within 4 weeks. Some of the most common symptoms which you may experience are listed below. Physical Symptoms Headache Dizziness/loss of balance Fatigue or drowsiness Difficulty sleeping Nausea or vomiting Incoordination Blurred or double vision Ringing of the ears Cognitive / Visual Symptoms Poor concentration Short term memory loss Difficulty finding the right word to say Difficulty understanding what others are saying Difficulty with multi-tasking Change in work/school performance Changes in vision / perception Emotional Symptoms Irritability Anxiety Depression Sudden emotional outbursts If you have a severe headache that gets worse or is accompanied by vomiting call 911 right away! How to Complete Your Self Cares with a Cervical Collar A Cervical Collar is a brace designed to immobilize your cervical spine during the healing process after a neck injury or surgery. Unless otherwise instructed by your doctor, your collar should be worn at all times. Any cares thatrequire you to remove the collar (washing/checking skin underneath, shaving, changing the pads) should be done lying completely flat in bed and without a pillow behind your head. Until your doctor says it???s ok: Do not lift > 5-10 pounds Do not raise your arms higher than shoulder level Do not twist or bend your neck any time the collar is off for cares Grooming Tips When brushing your teeth at the sink, it can be helpful to tuck a washcloth between your chin and collar to keep the collar padding dry. You will need to lay flat in bed to take the collar off to shave. Place an open towel behind your head before lying down to catch hairs that may fall. You may need assist or to use an electric razor.Do not tilt your head back or turn your head. If you have long hair, you may prefer to have your hair out of the brace when putting it on. You may prefer to wear your hair in a ponytail at a height above the back edge of the collar. Bathing If a Rachel collar (haskins/foam collar) was given to you, you can use this collar when in the shower. Change into this collar lying flat in bed (see ???Putting the Collar On?? above). If you wear your padded collar in the shower, you will need to change to dry pads after you are done showering. You may want to wash and dry the skin under the collar when it is removed to change the pads. Changing the Collar Pads You will be lying flat in bed when changing the collar pads as your collar will need to be removed.Do not turn your head, or tuck or lift your chin, when the collar is off. Your collar pads should be changed at least 1 time per day. They can be changed more frequently if they become wet or soiled. If you need additional/new collar pads, contact the orthotic company that provided your collar. When changing the collar pads, it is helpful to only remove one at a time to avoid confusion on correct pad placement. To clean your collar pads, rinse with water and mild soap. Make sure the soap is thoroughly rinsed.Wring out excess water and hang to dry. Taking the Collar Off You may need another person to assist you in taking off the collar. Your therapist will help you learn to take off the collar with as little help as possible. Lie flat on the bed without any blankets or pillows behind your shoulders, neck and head. Unfasten the Velcro on the sides of the collar. Have the person assisting you place their hand between the collar and the back of your head/neck. Push the collar into the mattress and slide the collar to the side and out from under your head/neck.DO NOT lift your head up as they are sliding the brace out. Putting the Collar On You may need another person to assist you in putting on the collar. Your therapist will help you learn to put on the collar with as little help as possible. You should already be lying flat on the bed with no blankets or pillows behind your shoulders, neckand head. Have the person assisting you push the back piece of the collar down into the bed and slide their hand and the collar behind your head and neck, then slide their hand out leaving the back piece of the collar behind your head and neck. DO NOT lift your head up as they are sliding the brace out. Adjust the position of the back piece so it is centered behind your neck. Place the front piece over your neck resting just under and touching your chin. Secure the Velcro straps on both sides of the collar; the edge of the back piece will slightly overlap the front piece on each side. The collar should be snug and restrict your ability to bend your chin toward your chest, bend your neck to the side and turn your head from [id number]. [employer]ER * Discharge Instr - Speech Language Pathology* Darcy Epperson, ATHLETIC COORDINATOR [facility] - 07/25/2023 12:53 PM MACHINE [employer]ER AND CELLOPHANER Speech-language pathologists (med peds) assess and treat speech, language, cognition (thinking) and swallowing disorders in children and adults. Dysphagia Discharge Instructions You were seen by our service during your hospital admission for concerns about swallowing and your ability to eat and drink safely. Dysphagia: Difficulty or discomfort with swallowing. Recommendations: Diet: We recommend a Easy to Chew (IDDSI 7) with thin Easy to chew diet: This diet includes soft/tender and moist textures. Foods that are restricted include: Foods that are hard, tough, chewy, fibrous, stringy textured, contain seeds, bones or gristle.Examples of foods to avoid: nuts, raw vegetables, steak, pineapple, hard candies, pumpkin seeds, raw carrot or apples. Medications: Medications with thin liquid Oral Cares: [place] teeth 2x daily Swallowing Strategies: Small sips/bites Alternate liquids with solids Warning Signs: Signs that you or your loved one is having trouble swallowing: Persistent cough, throat clear, or wet-sounding voice during meals. Increased lung congestion, fever Difficulty handling saliva If you see any of these signs, contact your doctor. FOLLOW-UP: No further speech pathology follow-up is recommended at this time. If you have any questions: contact your primary Speech-Language Pathologist directly or call [phone]. Thank you. INE [employer] CELL[employer]HANER documented in this encounter Medications at Time of Discharge Medication Sig Dispensed Refills Start Date End Date loperamide (IMODIUM) 2 mg oral capsule Take 1 capsule (2 mg) by mouth every 3 hours as needed for Diarrhea. 30 capsule 0 07/25/2023 melatonin 3 mg oral tablet Take 1 tablet (3 mg) by mouth every twenty-four hours. 30 tablet 0 07/25/2023 acetaminophen 325 mg oral tablet Take 2 tablets (650 mg) by mouth 3 times daily. 60 tablet 0 07/25/2023 traMADol (ULTRAM) 50 mg oral tablet Take 1 tablet (50 mg) by mouth every 8 hours as needed for Pain. 0 mirtazapine (REMERON) 15 mg oral tablet Take 1 tablet (15 mg) by mouth at bedtime. 0 lamoTRIgine (LAMICTAL) 100 mg oral tablet Take 1 tablet (100 mg) by mouth daily. 0 GABApentin (NEURONTIN) 300 mg oral capsule Take 1 capsule (300 mg) by mouth 3 times daily. 0 famotidine (PEPCID) 20 mg oral tablet Take 1 tablet (20 mg) by mouth twice daily. 0 fluticasone propionate (FLONASE) 50 mcg/act nasal suspension 2 sprays by Nasal route daily. 0 guaiFENesin (ROBITUSSIN) 200 mg/10mL oral Take 5 mL (100 mg) by mouth every 4 hours as needed for Cough. 0 levothyroxine (SYNTHROID) 75 mcg oral tablet Take 1 tablet (75 mcg) by mouth daily before morning meal. 0 topiramate (TOPAMAX) 25 mg oral tablet Take 1 tablet (25 mg) by mouth at bedtime. 0 albuterol (VENTOLIN HFA;PROVENTIL HFA;PROAIR) 108 (90 BASE) mcg/act inhalation inhaler Inhale 2 puffs every 4 hours as needed (SOB). 0 benzonatate (TESSALON) 100 mg oral capsule Take 1 capsule (100 mg) by mouth 3 times daily as needed. 0 baclofen (LIORESAL) 10 mg oral TABS Take 1 tablet (10 mg) by mouth at bedtime as needed. 0 budesonide-formoterol (SYMBICORT) 160-4.5 mcg/puff inhalation inhaler Inhale 2 puffs twice daily. 0 hydrOXYzine (ATARAX;VISTARIL) 10 mg oral TABS Take 1 tablet (10 mg) by mouth 3 times daily as needed for Itching. 0 lidocaine 5 % externally ointment Apply to skin 3 times daily as needed. 0 naproxen sodium (ALEVE) 220 mg oral tablet Take 2 tablets (440 mg) by mouth twice daily. 0 ondansetron (ZOFRAN) 4 mg oral TABS Take 1 tablet (4 mg) by mouth 3 times daily as needed for Nausea/Vomiting. 0 SUMAtriptan (IMITREX) 100 mg oral tablet Take 1 tablet (100 mg) by mouth twice daily as needed (migraine). 0 acetaminophen 325 mg oral tablet Take 1 tablet (325 mg) by mouth every 6 hours as needed for Mild Pain or Moderate Pain. 100 tablet 0 07/21/2023 cefUROXime (CEFTIN) 500 mg oral TABS Take 1 tablet (500 mg) by mouth twice daily for 3 doses. 3 tablet 0 07/25/2023 07/27/2023 documented as of this encounter Progress Notes * Candelaria Mejia, RN - 07/25/2023 1:02 PM CST DISCHARGE NOTE D: Patient has been discharged. A: (As documented in the Discharge Planning Flowsheet) Discharge Instructions (AVS): AVS given Discharge clothing/valuables: has adequate clothing Discharge medications: patient received medications Home equipment status: no equipment needed Home equipment/supplies recommended: none Final discharge destination: Home or self care R: The patient and family understood the AVS. P: Support patient and family if they call back with questions. Candelaria Mejia, RN, 07/25/2023 1:03 PM INE [employer] AND CELL[employer]ER * Nicola Rose Chi, PT - 07/25/2023 11:02 AM CST Problem: Decreased Ambulatory Skills Goal: Improve gait Description: Ambulate 50 meters using Front - wheeled walker or LRAD with (6) Modified [place] order to ambulate around his home by 08/10/23 . Outcome: In progress Goal: Improve gait on stairs Description: Ascend/descend 4 stairs using No assistive devices with (6) Modified [place] in order to get into her home by 08/10/23. Outcome: In progress Problem: Decreased Transfer Skills Goal: Patient will transfer supine to/from sit Description: Patient will transfer supine to/from sit with (6) Modified [place] in order to get out of a flat bed at home by 08/10/23. Outcome: Condition changed, goal no longer applicable Problem: Decreased Transfer Skills Goal: Patient will transfer sit to/from stand Description: Patient will transfer sit to/from stand with (6) Modified [place] and use of FWW in order to prepare for ambulation by 08/10/23. Outcome: Met Physical Therapy Progress Note PT Discharge Recommendations Discharge Recommendations: Safe for discharge to home/community/prior residence Level/type of placement (PT): Sub-Acute Rehab facility Barriers to placement (PT): (No need for placement) Barriers to discharge to home/community: None - Patient is safe to DC from PT standpoint If discharging to home, would need: Supervision when mobilizing (SBA for negotiating stairs) Post discharge follow-up: Home PT recommended to address * (for home safety evaluation, continued gait, stair training and general physical conditioning.) Equipment Status: Equipment issued;Patient will provide own equipment PT Equipment Recommended: Cane (walking stick and 4ww- Has all of these. Issued patient a gait belt.) PM&R Recommended: * (No) S: Pain Pain Rating With Activity (Numeric): (Typical neuropathic pains from knees to toes and in hands as well. 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 Has had BPPV as a result and has undergone o/p PT BPPV treatment as well. Reports having had BPPV in both ears. Lives w her and 1 dog in a house. Her is able to help 12/02. He's taken care of her after GB surgery w complications. Has 3 outdoor platform steps w 1 HR to enter her home via the basement. Needs to do 15 steps to get up to the main floor. She was Mod I for going up the stairs, however, she chooses to get from the main floor to the basement by going via outside instead, so that shecan bypass having to go down the steps which she's afraid to do b/c she's fallen in the stairs before. Sleeps in a rocker/recliner that can go relatively flat. Inside the house, she may walk w no AD,a walking stick, cane or 4ww, depending on how she feels. She does not have a 2ww. She usually usesher walking stick for ambulation outside her home. Feels she can catch her balance more readily w the walking stick than the cane. O:Head Turning Machine Operator Used: None needed Mental Status Mental Status: Alert;Cooperative Follows Directions: Consistently follows commands Delirium Assessment - CAM Short (Confusion Assessment Method) Acute onset OR fluctuating course: No Inattention: No Disorganized Thinking: No Altered level of consciousness: No CAM result: Negative Restrictions/Precautions Weight Bearing Restrictions: None Precautions: Cervical Spine Precautions ([place] J collar on at all times.) Vital Signs 07/24/2023 1653 07/24/2023 2212 07/25/2023 0919 BP: 117/83 128/75 111/70 Patient Position for BP: Sitting Lying Down Sitting Pulse: 79 72 93 SpO2: 96 % 97 % 96 % Transfer & Bed Mobility Supine to/from Sit: Modified independent (Supine w HOB up 40 degs to Sit on L side of bed- Note: Ptsleeps in a recliner at baseline.) Sit to/from Stand: Modified independent (from EOB without AD, Stand/Sit on high toilet w/s using grab bar to L- Mod I without AD) -Toiletting in sitting- Mod I -Donning pull up- Initially in sitting, then in standing- Mod I. -Went over her C-spine precautions. Patient asked why she needed to wear the [place] J collar. I toldher why. -Went over the symptoms she might experience d/t her concussion. Note: Pt is well aware of concussive symptoms d/t h/o multiple concussions in the past. -Also warned patient about importance of quarantining d/t Covid for 5 days from the day she was diagnosed w Covid. Gait Distance (m): 13 m (and 4m- Did 2x each, without AD- Mod I. 45m- Did 2x w SEC in L hand- Mod I.) Device: None;Cane Assistance: Modified independent Gait Quality (General): WNL (Slight wavering to the R when walking without AD.) Tends to look down at the floor to ensure she won't trip on anything d/t her neuropathy. -Instructed patient on how to adjust a walking device to the correct height. Stairs Number of Steps: 5 up w HR on R, SEC on L- Non alternating- SBA. 5 down w HR on L, SEC on R- Non alternating- SBA/CGA mostly b/c of patient's fear of falling. Stair Rails: Right rail;Left rail Stairs : Stand by assist (SBA/CGA) Stairs Method: Ascend step-to pattern;Descend step-to pattern Sitting Static Balance Level of Assistance: Independent (Sitting on EOB) Interdisciplinary Communication PA/CLOTH BRUSHING AND SUEDING SUPERVISOR: Texted to inform that patient was safe to d/c home w home PT. RN: Asked to d/c IV to facilitate PT. Clinical Coordinator: Asked if referral to home PT was sent. Fall Risk Assessment: None of the above Positioning: Was walking about her room when I left. Treatment rendered: Gait training;Transfer training;Bed mobility training (Functional Activity) Total treatment time: 60 minutes A: Patient is mentating normally now. Was able to give me a clear social history today. Has made excellent progress w her functional mobility. She's mod I for ambulation without an AD for short distances and w SEC for short to intermediate distances. She should have SBA/CGA to negotiate stairs, mostly b/c of her fear of falling +/- neck precautions. I went over her neck precautions w her and did a post-concussion review with her. She's safe to d/c home when medically ready w help from her for IADLs and for negotiating stairs. She's benefit from home PT for a home safety evaluation, continued gait/stair training and general physical conditioning. P: D/c from in-patient PT. Nicola Rose, PT 07/25/2023 Pager: [phone]+ PT Dept [employer]E [employer] CELL[employer]HANER * Shey Strong RN - 07/24/2023 2:44 PM CST Images from the original note were not included. Problem: Discharge Planning Goal: Patient/Family Goals for Discharge Outcome: In progress ADDENDUM (16:30) Odd Bundle Worker received a VM from [facility] , with intake [facility], reported : received [facility] referral and referral is under review. Will notify patient to arrange for visit if accepted. If denied, [facility] contact physician underwriter . Shey Strong, RN, 07/25/2023 7:35 AM Care Management Follow-up Note Patient Name: Viviane Iraheta Date: 07/24/2023 Patient/Family Discharge Goals: home with agreeable with home care services, with [facility] Discharge Destination Expected Discharge Date: 07/25/2023 Time: Potential Discharge within 24 Hours: Discharge plan: Above plan of care was created and discussed with team, patient and is consistent with patient???s overall goals of care. Current Discharge Placement Information: Continued Care and Services - Admitted Since 07/20/2023 Destination Coordination has not been started for this encounter. Home Medical Care Service Provider Request Status Selected Services Address Phone Fax Patient Preferred [facility] Considering Need clinical review N/A [address] [facility] [address] [phone] Current Capacity last updated by Millie Simms, PT on 06/01/2023 0814 physician underwriter faxed [facility] referral and supporting documents , patient active with [facility] Comment last updated by Shey Strong RN 07/24/2023 2003 Odd Bundle Worker contacted intake [facility] [phone] to send HH referral for review. Informed all referrals go through [place] [facility] . Odd Bundle Worker notified by provider, patient has has [facility] in [place] and would like same agency . Odd Bundle Worker fax [phone] to intake : Attn for [facility]. Odd Bundle Worker will update patient. Shey Strong RN, 07/24/2023 2:43 PM Summary of pertinent information: Odd Bundle Worker notified by provider, patient likely home discharge with [facility], per provider, patient has had home health through [facility] out of [place]. Refer to provider's progress note for FULL hospital course presentation. Odd Bundle Worker contacted intake [facility] [phone] to send HH referral for review. Informed all referrals go through [place]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 BANDER AND CELL[employer]HANER PC GASES,BLOOD,ANY COMB OF PH,PCD2,PO2,CO2,HCO2 STAT 07/22/2023 9:30 AM MACHINE [employer] AND CELL[employer]ER POC GLUCOSE Routine 07/22/2023 9:29 AM MACHINE [employer] AND CE[employer]HANER PANEL BASIC METABOLIC (BMP) Routine 07/22/2023 6:12 AM MACHINE [employer]ANDER AND CELLOPHANER TC LAB BLOOD DRAW BY VENIPUNCTURE Routine 07/22/2023 6:12 AM MACHINE [employer] AND [employer]ER POC GLUCOSE Routine 07/22/2023 12:11 AM MACHINE [employer]ER AND CELL[employer]HANER XR SPINE CERVICAL 2 VW UPRIGHT Routine 07/21/2023 4:23 PM MACHINE [employer] AND CE[employer]ER PHOSPHORUS Routine 07/21/2023 7:55 AM MACHINE [employer] AND CELL[employer]HANER PANEL BASIC METABOLIC (BMP) Routine 07/21/2023 7:55 AM MACHINE [employer] AND CELL[employer]HANER MAGNESIUM Routine 07/21/2023 7:55 AM MACHINE BANDER AND CELLOPHANER TC LAB BLOOD DRAW BY VENIPUNCTURE Routine 07/21/2023 7:55 AM MACHINE [employer]ANDER AND CELL[employer]HANER PC TROPONIN QUANTITATIVE Timed 07/20/2023 7:01 PM MACHINE BANDER AND CELL[employer]HANER PC LAB COMPLETE UA STAT 07/20/2023 6: 47 PM MACHINE [employer] AND [employer]HANER XR CHEST 1 VIEW AP OR PA* STAT 07/20/2023 5:53 PM MACHINE [employer] AND [employer]ER COVID/FLU COMBO STAT 07/20/2023 4:20 PM MACHINE [employer]ER AND CELL[employer]HANER ED EKG (12-LEAD) Routine 07/20/2023 3:37 PM MACHINE [employer] AND CE[employer]ER XR ELBOW RIGHT 3/4 VIEWS* STAT 07/20/2023 3:05 PM MACHINE [employer] AND CELL[employer]HANER XR FOREARM RIGHT 2 V AP + LAT* STAT 07/20/2023 3:04 PM MACHINE [employer] CT CHEST/ABD/PELVIS W/IV CONT STAT 07/20/2023 2:54 PM MACHINE [facility] [employer] CT SPINE THORACIC NO IV CON STAT 07/20/2023 2:53 PM MACH[facility] CT SPINE LUMBAR NO IV CON STAT 07/20/2023 2:53 PM MACH[facility] CT SPINE CERVICAL NO IV CON STAT 07/20/2023 2:53 PM MACHINE B[employer] [employer] CT HEAD NO IV CONTRAST STAT 2:53 PM MACHINE [employer] AND CELL[employer]HANER XR CHEST 1 VIEW AP OR PA* STAT 07/20/2023 2:48 PM MACHINE BANDER AND CELL[employer]HANER PC ELECTROLYTES PANEL STAT 07/20/2023 2:39 PM MACHINE BANDER AND CELLOPHANER TC LAB ER STAT TOTAL HGB STAT 07/20/2023 2:39 PM MACHINE BANDER AND CELLOPHANER PC LACTATE (LACTIC ACID) STAT 07/20/2023 2:39 PM MACHINE BANDER AND CELL[employer]HANER PC GASES,BLOOD,ANY COMB OF PH,PCD2,PO2,CO2,HCO2 STAT 07/20/2023 2:39 PM MACHINE BANDER AND CELLOPHANER PC LAB ED INR STAT 07/20/2023 2:35 PM MACHINE [employer] AND CELL[employer]HANER EXTRA TUBE - LIGHT GREEN Routine 07/20/2023 2:35 PM MACHINE [employer]ANDER AND CELL[employer]HANER EXTRA TUBE - PEÑA Routine 07/20/2023 2:3 5 PM MACHINE BANDER AND CELLOPHANER TC LAB BLOOD DRAW BY VENIPUNCTURE Routine 07/20/2023 2:35 PM MACHINE BANDER AND CELL[employer]ER PC TROPONIN QUANTITATIVE STAT 07/20/2023 2:35 PM MACHINE BANDER AND CELLOPHANER PC LAB CBC W/DIFF & PLT STAT 07/20/20 2:35 PM MACHINE [employer] AND CELL[employer]HANER PANEL HEPATIC FUNCTION Routine 2:35 PM MACHINE [employer] AND [employer]ER FIBRINOGEN STAT 07/20/2023 2:35 PM MACHINE BANDER AND CELLOPHANER PC LAB PTT STAT 07/20/2023 2:35 PM MACHINE [employer] AND CE[employer]ER PRECAUTIONARY TUBE STAT 07/20/2023 2: 25 PM MACHINE BANDER AND CELLOPHANER ED US CRITICAL CARE STAT 07/20/2023 2 :18 PM MACHINE [employer] AND [employer]ER documented in this encounter Results * (ABNORMAL) MAGNESIUM (07/25/2023 4:49 AM MACHINE BANDER AND CELLOPHANER) Magnesium 1.5(L) 1.6 - 2.4 mg/dL [facility] Blood 07/25/2023 4:49 AM MACHINE [employer] AND CE[employer]ER 07/25/2023 5:46 AM MACHINE [employer]AND[employer] AND CELL[employer]ER Wendy Guardado PA-C LABORATORY [facility] [address] [address] * PHOSPHORUS (07/25/2023 4:49 AM MACHINE BANDER AND CELLOPHANER) Phosphorus 2.8 2.5 - 4.5 mg/dL [facility] Blood 07/25/2023 4:49 AM MACHINE [employer] AND CE[employer]ER 07/25/2023 5:46 AM MACHINE [employer] AND CELL[employer]ER Wendy Guardado PA-C LABORATORY Performing Organization Address City/[facility]/ZIP Co de Phone Number [facility] [address] [address] * (ABNORMAL) PANEL BASIC METABOLIC (BMP) (07/25/2023 4:49 AM MACHINE BANDER AND CELLOPHANER) Sodium 145 135 - 148 mEq/L [facility] Potassium 3.5 3.5 - 5.3 mEq/L [facility] Chloride 113(H) 92 - 108 mEq/L [facility] CO2 23 22 - 30 mEq/L [facility] AnGap 9 8 - 16 mEq/L [facility] Glucose 85 70 - 100 mg/dL [facility] BUN 8 8 - 23 mg/dL [facility] Creatinine 1.02(H) 0.50 - 1.00 mg/dL [facility] Calcium 8.3(L) 8.8 - 10.2 mg/dL [facility] eGFR (2020 CKD-EPI) 60 >=60 ml/min/1.7 3m2 [facility] Comment: The estimated glomerular filtration rate (eGFR) was calculated using the CKD-EPI 2020 creatinine equation, which does not include race as a factor. This equation is validated in individuals 18 years of age and older, and eGFR is normalized to a body surface area of 1.73m^2. Blood 07/25/2023 4:49 AM MACHINE [employer]ER AND CELL[employer]HANER 07/25/2023 5:46 AM MACHINE [employer]ER AND CELL[employer]HANER Wendy Guardado PA-C LABORATORY Performing Organization Address City/[facility]/ZIP Co de Phone Number [facility] [address] [address] * (ABNORMAL) POTASSIUM (07/24/2023 8:00 PM MACHINE BANDER AND CELLOPHANER) Potassium 3.1(L) 3.5 - 5.3 mEq/L [facility] Blood 07/24/2023 8:00 PM MACHINE [employer]ER AND CELL[employer]ER 07/24/2023 8:14 PM MACHINE B[employer]ER AND CELLOPHANER Wendy Guardado PA-C LABORATORY Performing Organization Address [facility] Co de Phone Number [facility] [address] [address] * PHOSPHORUS (07/24/2023 8:00 PM MACHINE BANDER AND CELLOPHANER) Phosphorus 3.0 2.5 - 4.5 mg/dL [facility] Blood 07/24/2023 8:00 PM MACHINE [employer] AND CE[employer]ER 07/24/2023 8:14 PM MACHINE [employer]ER AND CELL[employer]HANER Wendy Guardado PA-C LABORATORY Performing Organization Address [facility] de Phone Number [facility] [address] [address] * RESPIRATORY CULTURE (07/24/2023 11:37 AM MACHINE BANDER AND CELLOPHANER) Final Report Specimen unacceptable for ROUTINE BACTERIAL culture. Patient account credited. [facility] Gram Stain Report Less than 10 PMN's/low power field. 10 to 25 epithelial cells /low power field. Few mixed konrad. The epithelial cells indicate contamination. Suggest recollect specimen. Result called to and read back by: Skip Fernandez RN @ ??07/24/2023 14:19:15 by Sienna Gonzales [facility] Sputum 07/24/2023 11:3 7 AM MACHINE [employer]ER AND CELL[employer]HANER 07/24/2023 11:59 AM MACHINE BANDER AND CELLOPHANER Narrative [facility] - 07/25/2023 6:50 AM MACHINE [employer]ER AND CELL[employer]HANER Patient account credited for culture 07/24/23 by [id number] Volodymyr Nicholas MD LAB MICROBIOLOGY Performing Organization Address [facility] Co de Phone Number [facility] [address] [address] * XR CHEST 2 VIEWS PA + LAT* (07/24/2023 11:29 AM MACHINE BANDER AND CELL[employer]HANER) Anatomical Region Laterality Modality Chest Computed Radiogr aphy 07/24/2023 11:3 7 AM MACHINE [employer]ER AND CELL[employer]HANER Impressions 07/24/2023 11:38 AM MACHINE [employer]ANDER AND CELL[employer]HANER Impression: Chronic interstitial coarsening. No acute airspace opacity identified. Reading Radiologist: Steven Millan Narrative 07/24/2023 11:38 AM MACHINE [employer]ANDER AND CELL[employer]HANER Technique: XR CHEST 2 VIEWS PA + [...] Millan Leandro Villalobos MD RAD XRAY * (ABNORMAL) PHOSPHORUS (07/24/2023 8:54 AM MACHINE BANDER AND CELLOPHANER) Phosphorus 1.7(L) 2.5 - 4.5 mg/dL [facility] Blood 07/24/2023 8:54 AM MACHINE BANDER AND CELL[employer]HANER 07/24/2023 9:34 AM MACHINE BANDER AND CELLOPHANER Jag Guardado APRN, CNP LABORATORY Performing Organization Address City/[facility] Co de Phone Number [facility] [address] [address] * MAGNESIUM (07/24/2023 8:54 AM MACHINE BANDER AND CELLOPHANER) Magnesium 1.7 1.6 - 2.4 mg/dL [facility] Blood 07/24/2023 8:54 AM MACHINE B[employer]ER AND CELL[employer]HANER 07/24/2023 9:34 AM MACHINE B[employer]ER AND CELLOPHANER Jag Guardado APRN, CNP LABORATORY Performing Organization Address City/[facility] Co de Phone Number [facility] [address] [address] * (ABNORMAL) PANEL BASIC METABOLIC (BMP) (07/24/2023 8:54 AM MACHINE BANDER AND CELLOPHANER) Sodium 145 135 - 148 mEq/L [facility] Potassium 3.1(L) 3.5 - 5.3 mEq/L [facility] Chloride 109(H) 92 - 108 mEq/L [facility] CO2 24 22 - 30 mEq/L [facility] AnGap 12 8 - 16 mEq/L [facility] Glucose 90 70 - 100 mg/dL [facility] BUN 7(L) 8 - 23 mg/dL [facility] Creatinine 0.86 0.50 - 1.00 mg/dL [facility] Calcium 9.3 8.8 - 10.2 mg/dL [facility] eGFR (2020 CKD-EPI) 73 >=60 ml/min/1.7 3m2 [facility] Comment: The estimated glomerular filtration rate (eGFR) was calculated using the CKD-EPI 2020 creatinine equation, which does not include race as a factor. This equation is validated in individuals 18 years of age and older, and eGFR is normalized to a body surface area of 1.73m^2. Blood 07/24/2023 8:54 AM MACHINE [employer]ER AND CELLOPHANER 07/24/2023 9:34 AM MACHINE BANDER AND CELLOPHANER Jag Guardado APRN, CNP LABORATORY Performing Organization Address [facility] Co de Phone Number [address] [address] * MR BRAIN W/O + WITH CONTRAST (07/23/2023 10:49 AM MACHINE BANDER AND CELLOPHANER) Anatomical Region Laterality Modality Skull Magnetic Resonan ce 07/23/2023 10:4 9 AM MACHINE [employer]ER AND CELL[employer]HANER Impressions 07/23/2023 11:31 AM MACHINE BANDER AND CELLOPHANER Impression: 1. No acute intracranial findings. 2. No suspicious intracranial or extracranial enhancement, although limited assessment secondary to significant motion artifact. I have personally reviewed the image(s) and initial interpretation, and I agree with the findings as documented by the resident/fellow. Reading Radiologist: Alverto Townsend Reading Resident: Arturo Hobson Narrative 07/23/2023 11:31 AM MACHINE BANDER AND CELLOPHANER Brain MRI without and with contrast Indication: [...] resident/fellow. Reading Radiologist: Alverto Townsend Reading Resident: Arturo Hobson Jareth Joseph MD RAD MR NEURO * FERRITIN (07/23/2023 7:48 AM MACHINE BANDER AND CELLOPHANER) Ferritin 40.0 13.0 - 150.0 ng/mL [facility] Comment: Test Performed by: [facility] [address] [place] [id number] Blood 07/23/2023 7:48 AM MACHINE [employer]ER AND CELL[employer]HANER 07/23/2023 2:36 PM MACHINE B[employer]ER AND CELLOPHANER Jag Guardado APRN, CNP LABORATORY Performing Organization Address [facility] Co de Phone Number [facility] [address] [address] * IRON (07/23/2023 7:48 AM MACHINE BANDER AND CELLOPHANER) Iron 58 35 - 145 mcg/dL [facility] Blood 07/23/2023 7:48 AM MACHINE [employer]ER AND CELL[employer]HANER 07/23/2023 2:36 PM MACHINE [employer]ER AND CELLOPHANER Jag Guardado APRN, CNP LABORATORY Performing Organization Address [facility] de Phone Number [facility] [address] [address] * (ABNORMAL) PHOSPHORUS (07/23/2023 7:48 AM MACHINE BANDER AND CELLOPHANER) Phosphorus 1.1(AA) 2.5 - 4.5 mg/dL [facility] Comment:Critical Result Low Blood 07/23/2023 7:48 AM MACHINE [employer]ER AND CELL[employer]HANER 07/23/2023 8:05 AM MACHINE BANDER AND CELLOPHANER Narrative [facility] - 07/23/2023 9:05 AM MACHINE [employer]ER AND CELL[employer]HANER Critical value for PO electronically reported to and acknowledged by Jag Gaxiola in [facility] at 07/23/2023 09:05:26 MACHINE [employer]ER AND CELLOPHANER by Samra Martino MLS. Volodymyr Nicholas MD LABORATORY Performing Organization Address [facility] Co de Phone Number [facility] [address] [address] * MAGNESIUM (07/23/2023 7:48 AM MACHINE BANDER AND CELLOPHANER) Magnesium 1.6 1.6 - 2.4 mg/dL [facility] Blood 07/23/2023 7:48 AM MACHINE [employer]ER AND CELL[employer]HANER 07/23/2023 8:05 AM MACHINE BANDER AND CELLOPHANER Volodymyr Nicholas MD LABORATORY [facility] [address] [address] * (ABNORMAL) PANEL BASIC METABOLIC (BMP) (07/23/2023 7:48 AM MACHINE BANDER AND CELLOPHANER) Sodium 143 135 - 148 mEq/L [facility] Potassium 3.3(L) 3.5 - 5.3 mEq/L [facility] Chloride 110(H) 92 - 108 mEq/L [facility] CO2 23 22 - 30 mEq/L [facility] AnGap 10 8 - 16 mEq/L [facility] Glucose 96 70 - 100 mg/dL [facility] BUN 8 8 - 23 mg/dL [facility] Creatinine 0.84 0.50 - 1.00 mg/dL [facility] Calcium 8.8 8.8 - 10.2 mg/dL [facility] eGFR (2020 CKD-EPI) 75 >=60 ml/min/1.7 3m2 [facility] Comment: The estimated glomerular filtration rate (eGFR) was calculated using the CKD-EPI 2020 creatinine equation, which does not include race as a factor. This equation is validated in individuals 18 years of age and older, and eGFR is normalized to a body surface area of 1.73m^2. Blood 07/23/2023 7:48 AM MACHINE BANDER AND CELLOPHANER 07/23/2023 8:05 AM MACHINE BANDER AND CELLOPHANER Leandro Villalobos MD LABORATORY Performing Organization Address [facility]/ZIP Co de Phone Number [facility] [address] [address] * CBC WITH PLATELET (07/23/2023 7:48 AM MACHINE BANDER AND CELLOPHANER) WBC 9.75 4.00 - 10.00 k/cmm [facility] RBC 4.29 3.90 - 5.20 m/cmm [facility] Hgb 12.5 11.5 - 15.7 g/dL [facility] Hematocrit 38.0 34.0 - 45.0 % [facility] MCV 88.6 80.0 - 100.0 fL [facility] MCH 29.1 25.0 - 32.0 pg [facility] MCHC 32.9 31.0 - 36.0 g/dL [facility] RDW 13.2 11.5 - 14.5 % [facility] Plt 236 150 - 400 k/cmm [facility] MPV 9.6 6.5 - 12.5 fL [facility] Blood 07/23/2023 7:48 AM MACHINE B[employer]ER AND CELLOPHANER 07/23/2023 8:05 AM MACHINE BANDER AND CELLOPHANER Leandro Villalobos MD LABORATORY Performing Organization Address [facility] Co de Phone Number [facility] [place] [address] * RPR SYPHILIS SCREEN (07/22/2023 6:15 PM MACHINE BANDER AND CELLOPHANER) RPR Screen Non-Reactive Non-Reacti ve [facility] RPR Titer Not Reflexed [facility] Blood 07/22/2023 6:15 PM MACHINE B[employer]ER AND CELLOPHANER 07/22/2023 6:25 PM MACHINE BANDER AND CELLOPHANER Volodymyr Nicholas MD LABORATORY Performing Organization Address City/[facility] Co de Phone Number [facility] [address] [address] * TSH WITH REFLEX TO FREE T4 (07/22/2023 6:15 PM MACHINE BANDER AND CELLOPHANER) Pathologist [facility] TSH 1.01 0.27 - 4.20 mIU/L [facility] Blood 07/22/2023 6:15 PM MACHINE B[employer]ER AND CELLOPHANER 07/22/2023 6:25 PM MACHINE BANDER AND CELLOPHANER Volodymyr Nicholas MD LABORATORY Performing Organization Address [facility] Co de Phone Number [facility] [address] [address] * (ABNORMAL) BLOOD GASES (07/22/2023 6:15 PM MACHINE BANDER AND CELLOPHANER) PH Scotty 7.37 7.32 - 7.42 [facility] PCO2 Scotty 45 41 - 51 mmHG [facility] PO2 Scotty 44(H) 25 - 40 mmHG [facility] Bicarb Scotty 25 24 - 28 mEq/L [facility] O2 Sat Scotty 81 % [facility] Base Exc Scotty -0.7 -10.0 - 2.0 mEq/L [facility] Blood Venous 07/22/2023 6:15 PM MACHINE B[employer]ER AND CELLOPHANER 07/22/2023 6:20 PM MACHINE BANDER AND CELLOPHANER Volodymyr Nicholas MD LABORATORY Performing Organization Address City/[facility] Co de Phone Number [facility] [address] [address] * PROCALCITONIN (07/22/2023 6:15 PM MACHINE BANDER AND CELLOPHANER) Procalcitonin 0.05 ng/mL [facility] Comment: Results <0.50 ng/mL represent a low risk of severe sepsis and/or septic shock. Results >2.0 ng/mL represent a high risk of severe sepsis and/or septic shock. Blood 07/22/2023 6:15 PM MACHINE BANDER AND CELLOPHANER 07/22/2023 6:25 PM MACHINE BANDER AND CELLOPHANER Volodymyr Nicholas MD LABORATORY Performing Organization Address [facility] Co de Phone Number [facility] [address] [address] * EKG ADULT (12-LEAD) (07/22/2023 1:03 PM MACHINE BANDER AND CELLOPHANER) 07/22/2023 1:03 PM MACHINE BANDER AND CELLOPHANER Impressions [facility] CVIS EKG ORDERS - 07/22/2023 1:03 PM MACHINE BANDER AND CELLOPHANER SINUS RHYTHM WITH OCCASIONAL VENTRICULAR PREMATURE COMPLEXES NONSPECIFIC T-WAVE ABNORMALITY BORDERLINE ECG Comparison Summary: T-WAVE ABNORMALITY NOW PRESENT Compared with: 07/20/2023 3:37 PM P-R Interval 142 ms QRS Interval 80 ms QT Interval 394 ms QTC Interval 434 ms P Garland 83 QRS Garland 31 T Wave Garland 79 Narrative Procedure Note Kimberley Richardson MD - 07/22/2023 IMPRESSION SINUS RHYTHM WITH OCCASIONAL VENTRICULAR PREMATURE COMPLEXES NONSPECIFIC T-WAVE ABNORMALITY BORDERLINE ECG Comparison Summary: T-WAVE ABNORMALITY NOW PRESENT Compared with: 07/20/2023 3:37 PM P-R Interval 142 ms QRS Interval 80 ms QT Interval 394 ms QTC Interval 434 ms P Garland 83 QRS [place] 31 T Wave Garland 79 Leandro Villalobos MD EKG Performing Organization Address [facility] [place]/[facility] Co de Phone Number [facility] E[facility] ORDERS * (ABNORMAL) URINALYSIS,TOTAL (07/22/2023 12:49 PM MACHINE [employer]ER AND CELLOPHANER) Color YELLOW YELLOW [facility] Appearance CLEAR CLEAR [facility] Urine Glucose NEGATIVE NEGATIVE mg/dL [facility] Bili UA NEGATIVE NEGATIVE [facility] Ketones 60(A) NEGATIVE [facility] Blood Ur SMALL(A) Neg-Trace [facility] PH Urine 7.0 5.0 - 7.0 [facility] Protein Ur 30(A) Neg-Trace [facility] Urobilinogen NORMAL NORMAL EU/dL [facility] Nitrite Ur NEGATIVE NEGATIVE [facility] Leuk Est NEGATIVE Neg-Trace [facility] WBC Ur 0-5 0 - 5 perHPF [facility] RBC Ur 0-3 0 - 3 perHPF [facility] Mucus 1+ perLPF [facility] Urinalysis Performed at: [facility] Specific [place] 1.031(A) 1.003 - 1.030 [facility] Urine 07/22/2023 12:4 9 PM MACHINE [employer] CELL[employer]ER 07/22/2023 1:06 PM MACHINE [employer] AND CELLOPH[employer]ER Leandro Villalobos MD LABORATORY Performing Organization Address [facility] [place]/[facility] Co de Phone Number [facility] [place] [address] * LEGIONELLA PNEUMOPHILA URINE ANTIGEN (07/22/2023 12:45 PM MACHINE B[employer]ER AND CELLOPHANER) Final Report Negative for Legionella pneumophila Serogroup 1 Antigen. [facility] Urine 07/22/2023 12:4 5 PM MACHINE [employer] AND CELL[employer]ER 07/22/2023 9:34 PM MACHINE [employer] AND CELLOPH[employer]ER Volodymyr Nicholas MD LAB MICROBIOLOGY Performing Organization Address [facility] [place]/[facility] Co de Phone Number [facility] [place] [id number] * AMMONIA (07/22/2023 12:09 PM MACHINE B[employer] AND CELLOPHANER) Ammonia 24 11 - 51 mcmol/L [facility] Blood 07/22/2023 12:0 9 PM MACHINE BANDER AND CELLOPHANER 07/22/2023 12:14 PM MACHINE BANDER AND CELLOPHANER Narrative [facility] - 07/22/2023 12:49 PM MACHINE BANDER AND CELLOPHANER Send specimen on ice! Leandro Villalobos MD LABORATORY Performing Organization Address City/[facility] Co de Phone Number [facility] [address] [address] * TROP 2H (07/22/2023 12:02 PM MACHINE BANDER AND CELLOPHANER) 2H Trop 3 <=14 ng/L [facility] 2H Delta Not Significant Not Significant [facility] Blood 07/22/2023 12:0 2 PM MACHINE BANDER AND CELLOPHANER 07/22/2023 12:14 PM MACHINE BANDER AND CELLOPHANER Leandro Villalobos MD LABORATORY Performing Organization Address [facility] Co de Phone Number [facility] [address] [address] * MR BRAIN LIMITED EXAM (07/22/2023 11:43 AM MACHINE BANDER AND CELLOPHANER) Anatomical Region Laterality Modality Skull Magnetic Resonan ce 07/22/2023 12:1 0 PM MACHINE BANDER AND CELLOPHANER Impressions 07/22/2023 12:11 PM MACHINE BANDER AND CELLOPHANER IMPRESSION: Nondiagnostic limited exam. Reading Radiologist: Alverto Townsend Narrative 07/22/2023 12:11 PM MACHINE BANDER AND CELLOPHANER Limited exam because patient could not tolerate the full exam. Only the allergist/md images were obtained. Procedure Note Alverto Townsend MD - 07/22/2023 Limited exam because patient could not tolerate the full exam. Only thescout images were obtained. IMPRESSION IMPRESSION: Nondiagnostic limited exam. Reading Radiologist: Alverto Townsend Leandro Villalobos MD RAD MR NEURO * CT HEAD STROKE SERIES NO PERFUSION (07/22/2023 9:50 AM MACHINE BANDER AND CELLOPHANER) Anatomical Region Laterality Modality Skull Computed Tomogra phy 07/22/2023 10:1 4 AM MACHINE BANDER AND CELLOPHANER Impressions 07/22/2023 10:36 AM MACHINE BANDER AND CELLOPHANER Impression: ?? 1. Non-contrast head CT demonstrates [...] Resident: Bibiana Sweet Narrative 07/22/2023 10:36 AM MACHINE BANDER AND CELLOPHANER Indication: altered mentation, paucity of speech ??. [...] the head to a level above the [place]. ??3D reconstructions and multiplanar 2D image reformations were performed and reviewed by the Radiologist using the [employer] workstation, and these images were archived in [...] the head to a level above the [place]. 3Dreconstructions and multiplanar 2D image reformations were performed andreviewed by the Radiologist using the [employer] workstation, and these imageswere archived in the [...] Reading Resident: Bibiana Sweet Gladys Duncan APRN, DIRECTOR OUTCOMES RAD CT NEURO * EXTRA TUBE - LAVENDER (07/22/2023 9:30 AM MACHINE BANDER AND CELLOPHANER) LAVENDER TUBE Stored [facility] Comment:Lavendar (EDTA) tube s collected at [facility] are stored for 3 days from the collection date. Blood 07/22/2023 9:30 AM MACHINE BANDER AND CELLOPHANER 07/22/2023 9:48 AM MACHINE BANDER AND CELLOPHANER Leandro Villalobos MD LABORATORY [facility] [address] [place] [address] * EXTRA TUBE - BLUE (07/22/2023 9:30 AM MACHINE BANDER AND CELLOPHANER) BLUE TUBE [facility] Comment:Blue top(Sodium citr ate) tubes are kept for 3 days from the collection date. Blood 07/22/2023 9:30 AM MACHINE BANDER AND CELLOPHANER 07/22/2023 9:48 AM MACHINE BANDER AND CELLOPHANER Leandro Villalobos MD LABORATORY Performing Organization Address [facility] Co de Phone Number [facility] [address] [address] * (ABNORMAL) PANEL HEPATIC FUNCTION (07/22/2023 9:30 AM MACHINE BANDER AND CELLOPHANER) Total Protein 6.1(L) 6.4 - 8.3 g/dL [facility] Albumin 3.7(L) 3.8 - 5.1 g/dL [facility] Bili Total 0.2 <=1.2 mg/dL [facility] Bili Direct <0.2 <=0.3 mg/dL [facility] Alk Phos 103 35 - 104 IU/L [facility] ALT (SGPT) 11 <=33 IU/L [facility] AST(SGOT) 21 5 - 40 IU/L [facility] Blood 07/22/2023 9:30 AM MACHINE BANDER AND CELLOPHANER 07/22/2023 9:43 AM MACHINE BANDER AND CELLOPHANER Leandro Villalobos MD LABORATORY Performing Organization Address [facility] Co de Phone Number [facility] [address] [address] * LACTATE (LACTIC ACID) (07/22/2023 9:30 AM MACHINE BANDER AND CELLOPHANER) [facility] Lactate 1.1 0.7 - 2.1 mmol/L [facility] Blood 07/22/2023 9:30 AM MACHINE BANDER AND CELLOPHANER 07/22/2023 9:49 AM MACHINE BANDER AND CELLOPHANER Narrative [facility] - 07/22/2023 10:06 AM MACHINE BANDER AND CELLOPHANER Send specimen on ice! Leandro Villalobos MD LABORATORY Performing Organization Address [facility] Co de Phone Number [facility] [address] [address] * (ABNORMAL) BLOOD GASES (07/22/2023 9:30 AM MACHINE BANDER AND CELLOPHANER) PH Scotty 7.29(L) 7.32 - 7.42 [facility] PCO2 Scotty 56(H) 41 - 51 mmHG [facility] PO2 Scotty 46(H) 25 - 40 mmHG [facility] Bicarb Scotty 26 24 - 28 mEq/L [facility] O2 Sat Scotty 81 % [facility] Base Exc Scotty -1.8 -10.0 - 2.0 mEq/L [facility] Blood Venous 07/22/2023 9:30 AM MACHINE BANDER AND CELLOPHANER 07/22/2023 9:49 AM MACHINE BANDER AND CELLOPHANER Leandro Villalobos MD LABORATORY [address] [address] * HS TROPONIN (07/22/2023 9:30 AM MACHINE BANDER AND CELLOPHANER) HS Troponin I 4 <=14 ng/L [facility] Blood 07/22/2023 9:30 AM MACHINE BANDER AND CELLOPHANER 07/22/2023 9:43 AM MACHINE BANDER AND CELLOPHANER Narrative [facility] - 07/22/2023 10:41 AM MACHINE BANDER AND CELLOPHANER First Occurrence of the Troponin order is to be drawn Stat by Nursing staff on the unit. Leandro Villalobos MD LABORATORY Performing Organization Address [facility] Co de Phone Number [address] [address] * LIPASE (07/22/2023 9:30 AM MACHINE BANDER AND CELLOPHANER) Lipase 14 13 - 60 IU/L [facility] Blood 07/22/2023 9:30 AM MACHINE BANDER AND CELLOPHANER 07/22/2023 9:43 AM MACHINE BANDER AND CELLOPHANER Leandro Villalobos MD LABORATORY Performing Organization Address City/[facility]/ZIP Co de Phone Number [address] [address] * (ABNORMAL) POC GLUCOSE (07/22/2023 9:29 AM MACHINE BANDER AND CELLOPHANER) POC Glucose 112(H) 70 - 100 mg/dL [facility] Blood 07/22/2023 9:29 AM MACHINE BANDER AND CELLOPHANER Iker Horowitz MD LABORATORY [facility] [address] [place] [address], * (ABNORMAL) PANEL BASIC METABOLIC (BMP) (07/22/2023 6:12 AM MACHINE BANDER AND CELLOPHANER) Sodium 143 135 - 148 mEq/L [facility] Potassium 3.5 3.5 - 5.3 mEq/L [facility] Chloride 112(H) 92 - 108 mEq/L [facility] CO2 21(L) 22 - 30 mEq/L [facility] AnGap 10 8 - 16 mEq/L [facility] Glucose 111(H) 70 - 100 mg/dL [facility] BUN 11 8 - 23 mg/dL [facility] Creatinine 0.96 0.50 - 1.00 mg/dL [facility] Calcium 8.9 8.8 - 10.2 mg/dL [facility] eGFR (2020 CKD-EPI) 64 >=60 ml/min/1.7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 1400, Until Discontinued Given 07/25/2023 7:51 AM MACHINE BANDER AND CELLOPHANER 975 mg Given 07/24/2023 8:01 PM MACHINE BANDER AND CELLOPHANER 975 mg Given 07/24/2023 1:38 PM MACHINE BANDER AND CELLOPHANER 975 mg albuterol (ACCUNEB;VENTOLIN) 2.5mg/3mL inhalation solution 2.5 mg 2.5 mg, Inhalation, Q4H, First dose on Sun07/21/23 at 0900, Until Discontinued Given 07/21/2023 9:35 AM MACHINE BANDER AND CELLOPHANER 2.5 mg albuterol (ACCUNEB;VENTOLIN) 2.5mg/3mL inhalation solution 2.5 mg 2.5 mg, Inhalation, Q4H PRN, Starting on Sun07/21/23 at 1330, Until Sun07/25/23 at 1613, Wheezing azithromycin (ZITHROMAX) 500 mg in NaCl 0.9% 250 mL IVPB 500 mg, Indication (Select One): Infection - Suspected, SITE (Select all that apply): Lower Respiratory, Cultures Ordered? No, Intravenous, ONE TIME, 1 dose, On Sun07/20/23 at 1455 New Bag 07/20/2023 6:10 PM MACHINE B[employer]ER AND CELLOPHANER 500 mg 250 mL/hr azithromycin (ZITHROMAX) 500 mg in NaCl 0.9% 250 mL IVPB 500 mg, Indication (Select One): Infection - Suspected, SITE (Select all that apply): Lower Respiratory, Cultures Ordered? Yes, Intravenous, Q24H, 3 doses, First dose on Sun07/22/23 at 1630, Last dose on Sun07/24/23 at 1630 Infusing 07/23/2023 8:26 PM MACHINE [employer] AND CELL[employer]HANER 250 mL/hr New Bag 07/23/2023 6:20 PM MACHINE B[employer]ER AND CELLOPHANER 500 mg 250 mL/hr Restarted 07/22/2023 10:20 PM MACHINE B[employer]ER AND CELLOPHANER 250 mL/hr azithromycin (ZITHROMAX) tablet 500 mg 500 mg, Indication (Select One): Infection - Suspected, SITE (Select all that apply): Lower Respiratory, Cultures Ordered? Yes, Oral, DAILY, 1 dose, First dose on Sun07/25/23 at 0800 Given 07/25/2023 7:52 AM MACHINE BANDER AND CELLOPHANER 500 mg baclofen (LIORESAL) tablet 20 mg 20 mg, Oral, TID, First dose on Sun07/21/23 at 0900, Until Discontinued Given 07/21/2023 8:50 PM MACHINE BANDER AND CELLOPHANER 20 mg Given 07/21/2023 10:21 AM MACHINE BANDER AND CELLOPHANER 20 mg cefTRIAXone (ROCEPHIN) 2 g in NaCl 0.9% 100 mL IVPB 2 g, Indication (Select One): Infection - Suspected, SITE (Select all that apply): Lower Respiratory, Cultures Ordered? No, Intravenous, ONE TIME, 1 dose, On Sun07/20/23 at 1455 New Bag 07/20/2023 5:30 PM MACHINE BANDER AND CELLOPHANER 2 g 200 mL/hr cefTRIAXone (ROCEPHIN) 2 g in NaCl 0.9% 100 mL IVPB 2 g, Indication (Select One): Infection - Suspected, SITE (Select all that apply): Lower Respiratory, Cultures Ordered? Yes, Intravenous, Q24H, 5 doses, First dose on Sun07/22/23 at 1630, Last dose on Sun07/26/23 at 1630 New Bag 07/23/2023 5:27 PM MACHINE BANDER AND CELLOPHANER 2 g 200 mL/hr New Bag 07/22/2023 6:30 PM MACHINE B[employer]ER AND CELLOPHANER 2 g 200 mL/hr cefUROXime (CEFTIN) tablet 500 mg 500 mg, Indication (Select One): Infection - Confirmed, SITE (Select all that apply): Lower Respiratory, Cultures Ordered? No, Oral, BID, 5 doses, First dose on Sun07/24/23 at 2000, Last dose on Sun07/26/23 at 2000 Given 07/25/2023 7:51 AM MACHINE B[employer]ER AND CELLOPHANER 500 mg Given 07/24/2023 8:01 PM MACHINE B[employer]ER AND CELLOPHANER 500 mg DC MED REC REVIEW BY PHARMACY Discharge Date: 07/25/2023, Discharge Location: Home, Anticipated Discharge Time: 10 am - 2 pm, Discharge Medication Orders: DC Med Orders Final, Does not apply, PROTOCOL, Starting on Sun07/25/23 at 1042, Until Sun07/25/23 at 1613 dextrose 5% - NaCl 0.9% 5-0.9 % infusion at 75 mL/hr, Intravenous, CONTINUOUS, Starting on Sun07/22/23 at 0055, Until Sun07/23/23 at 1537 Infusing 07/23/2023 7:11 AM MACHINE BANDER AND CELLOPHANER 75 mL/hr New 07/22/2023 1:08 AM MACHINE BANDER AND CELLOPHANER 75 mL/hr enoxaparin (LOVENOX) 40 mg/0.4 mL injection 40 mg 40 mg, Subcutaneous, DAILY, First dose on Sun07/24/23 at 1420, Until Discontinued Given 07/25/2023 7:51 AM MACHINE BANDER AND CELLOPHANER 40 mg Abdominal Tissue Given 07/24/2023 5:05 PM MACHINE B[employer]ER AND CELLOPHANER 40 mg Le ft Upper Quadrant Abdomen ferrous sulfate tablet 325 mg 325 mg, Oral, QOD, First dose on Sun07/24/23 at 0800, Until Discontinued Given 07/24/2023 8:37 AM MACHINE BANDER AND CELLOPHANER 325 mg GABApentin (NEURONTIN) capsule 100 mg 100 mg, Oral, TID, First dose on Sun07/20/23 at 2000, Until Discontinued Given 07/21/2023 8:50 PM MACHINE B[employer]ER AND CELLOPHANER 100 mg Given 07/21/2023 1:28 PM MACHINE B[employer]ER AND CELLOPHANER 100 mg Given 07/21/2023 7:46 AM MACHINE BANDER AND CELLOPHANER 100 mg GABApentin (NEURONTIN) capsule 300 mg 300 mg, Oral, TID, First dose on Sun07/24/23 at 2000, Until Discontinued Given 07/25/2023 7:52 AM MACHINE BANDER AND CELLOPHANER 300 mg Given 07/24/2023 8:01 PM MACHINE B[employer]ER AND CELLOPHANER 300 mg gadobutrol (GADAVIST) 1 mmol/mL injection 0-15 mL 0-15 mL, IV Push, RAD ONE TIME AUTO ACKNOWLEDGE, 1 dose, On Sun07/23/23 at 1050 Given 07/23/2023 10:49 AM MACHINE BANDER AND CELLOPHANER 2.5 mL Le ft Arm iohexol (OMNIPAQUE) 350 mg/mL injection IV Push, RAD ONE TIME AUTO ACKNOWLEDGE, 1 dose, On Sun07/20/23 at 1455 Given 07/20/2023 2:54 PM MACHINE B[employer]ER AND CELLOPHANER 120 mL L eft Arm iohexol (OMNIPAQUE) 350 mg/mL injection IV Push, RAD ONE TIME AUTO ACKNOWLEDGE, 1 dose, On Sun07/22/23 at 0955 Given 07/22/2023 9:51 AM MACHINE BANDER AND CELLOPHANER 60 mL R ight Arm iron sucrose (VENOFER) 100 mg in NaCl 0.9% 100 mL IVPB - Non-Hemodialysis 100 mg, Intravenous, ONE TIME, On Sun07/23/23 at 1525 New Bag 07/23/2023 4:21 PM MACHINE B[employer]ER AND CELLOPHANER 100 mg lamoTRIgine (LaMICtal) tablet TABS 100 mg 100 mg, Oral, DAILY, First dose on Sun07/22/23 at 1615, Until Discontinued Given 07/25/2023 7:51 AM MACHINE BANDER AND CELLOPHANER 100 mg Given 07/24/2023 8:37 AM MACHINE BANDER AND CELLOPHANER 100 mg Given 07/23/2023 2:09 PM MACHINE BANDER AND CELLOPHANER 100 mg levothyroxine (SYNTHROID) tablet 75 mcg 75 mcg, Oral, DAILY BEFORE AM MEAL, First dose on Sun07/23/23 at 0730, Until Discontinued Given 07/25/2023 5:47 AM MACHINE BANDER AND CELLOPHANER 75 mcg Given 07/24/2023 6:49 AM MACHINE BANDER AND CELLOPHANER 75 mcg Given 07/23/2023 2:09 PM MACHINE B[employer]ER AND CELLOPHANER 75 mcg lidocaine (LIDODERM) 5% patch 1 patch 1 patch, Transdermal, ONE TIME, 1 dose, On Sun07/20/23 at 1545 Patch applied 07/20/2023 5:06 PM MACHINE [employer]ER AND CELLOPHANER 1 patch Right Arm loperamide (IMODIUM) capsule 2 mg 2 mg, Oral, Q3H PRN, Starting on Sun07/24/23 at 1506, Until Sun07/25/23 at 1613, Diarrhea Given 07/25/2023 6:57 AM MACHINE BANDER AND CELLOPHANER 2 mg Given 07/24/2023 5:06 PM MACHINE B[employer]ER AND CELLOPHANER 2 mg LORazepam (ATIVAN) 2 mg/mL injection 1 mg 1 mg, IV Push, ONE TIME PRN, 1 dose, Starting on Sun07/22/23 at 1140, Until Sun07/23/23 at 0913, Sedation, 20 minutes before heading to MRI Given 07/23/2023 9:13 AM MACHINE [employer]ER AND CELLOPHANER 1 mg magnesium sulfate 2 g IVPB 2 g, Intravenous, ONE TIME, Administer over 1 Hours, On Sun07/25/23 at 0730 New Bag 07/25/2023 7:58 AM MACHINE B[employer]ER AND CELLOPHANER 2 g 50 mL/hr melatonin tablet 3 mg 3 mg, Oral, Q24H, First dose on Sun07/22/23 at 1800, Until Discontinued Given 07/24/2023 5:06 PM MACHINE B[employer]ER AND CELLOPHANER 3 mg Given 07/23/2023 8:19 PM MACHINE B[employer]ER AND CELLOPHANER 3 mg mirtazapine (REMERON) tablet 15 mg 15 mg, Oral, BEDTIME, First dose on Sun07/23/23 at 2000, Until Discontinued Given 07/24/2023 8:01 PM MACHINE B[employer]ER AND CELLOPHANER 15 mg Given 07/23/2023 8:20 PM MACHINE B[employer]ER AND CELLOPHANER 15 mg mometasone-formoterol (DULERA) 100-5 mcg/puff inhaler 2 puff 2 puff, Inhalation, BID, First dose on Sun07/22/23 at 2000, Until Discontinued Given 07/25/2023 7:52 AM MACHINE BANDER AND CELLOPHANER 2 puffs Given 07/24/2023 8:03 PM MACHINE BANDER AND CELLOPHANER 2 puffs Given 07/24/2023 8:39 AM MACHINE BANDER AND CELLOPHANER 2 puffs NaCl 0.9% infusion at 75 mL/hr, Intravenous, CONTINUOUS, Starting on Sun07/20/23 at 1930, Until Sun07/21/23 at 0938 New Bag 07/21/2023 5:52 AM MACHINE B[employer]ER AND CELLOPHANER 75 mL/hr New Bag 07/20/2023 8:21 PM MACHINE B[employer]ER AND CELLOPHANER 75 mL/hr NaCl 0.9% infusion at 100 mL/hr, Intravenous, CONTINUOUS, Starting on Sun07/21/23 at 2040, Until 07/22/23 at 0052 New Bag 07/21/2023 8:49 PM MACHINE [employer]ER AND CELLOPHANER 100 mL/hr ondansetron (ZOFRAN) 4 mg/2 mL injection 4 mg 4 mg, IV Push, Q6H PRN, Starting on Sun07/20/23 at 1703, Until Sun07/25/23 at 1613, Nausea/Vomiting (Use First) Given 07/22/2023 3:15 AM MACHINE [employer] AND CELLOPHANER 4 mg phosphate 71.6 mg/3.7 mEq/5 ML oral solution 30 mL 30 mL, Oral, TID, 3 doses, First dose on Sun07/24/23 at 1015, Last dose on Sun07/24/23 at 1999 Given 07/24/2023 8:01 PM MACHINE [employer] AND CELL[employer]HANER 30 mL Given 07/24/2023 1:36 PM MACHINE [employer]ER AND CELLOPHANER 30 mL Given 07/24/2023 11:55 AM MACHINE B[employer]ER AND CELLOPHANER 30 mL potassium chloride (K-DUR) tablet 20 mEq 20 mEq, Oral, ONE TIME, 1 dose, On Sun07/24/23 at 1255 Given 07/24/2023 1:38 PM MACHINE [employer] AND CELL[employer]ER 20 mEq potassium chloride (K-DUR) tablet 40 mEq 40 mEq, Oral, ONE TIME, 1 dose, On Sun07/24/23 at 2130 Given 07/24/2023 9:58 PM MACHINE [employer]ER AND CELLOPHANER 40 mEq rOPINIRole (REQUIP) tablet 0.25 mg 0.25 mg, Oral, BEDTIME, First dose on Sun07/23/23 at 2000, Until Discontinued Given 07/24/2023 8:01 PM MACH[facility] [employer] 0.25 mg Given 07/23/2023 8:20 PM [employer] 0.25 mg sodium phosphate 15 mmol in dextrose 5% IVPB 15 mmol, Intravenous, Q2H, First dose on Sun07/23/23 at 1030, Last dose on Sun07/23/23 at 1230 New Bag 07/23/2023 2:09 PM [employer]ACH[facility] [employer] 15 mmol New Bag 07/23/2023 11:28 AM [employer]ACHINE [employer] 15 mmol sodium phosphate 15 mmol in dextrose 5% IVPB 15 mmol, Intravenous, ONE TIME, On Sun07/24/23 at 1045 New Bag 07/24/2023 11:58 AM [employer]ACHINE [employer] 15 mmol thiamine (VITAMIN B1) 500 mg in 50mL NS IVPB 500 mg, Intravenous, Q 8H, Administer over 60 Minutes, First dose on Sun07/22/23 at 2000, Last dose on Sun07/25/23 at 1400 New Bag 07/25/2023 5:48 AM [employer]ACHINE [employer] 500 mg New 07/24/2023 10:00 PM [employer] 500 mg 07/24/2023 5:07 PM [employer]ACHINE [employer] 500 mg topiramate (TOPAMAX) tablet 25 mg 25 mg, Oral, BEDTIME, First dose on Sun07/23/23 at 2000, Until Discontinued Given 07/24/2023 8:01 PM [employer]ACH[employer] 25 mg Given 07/23/2023 8:19 PM [employer]ACHINE [employer] 25 mg traMADol (ULTRAM) tablet 50 mg 50 mg, Oral, Q6H PRN, Starting on Sun07/20/23 at 1925, Until Sun07/22/23 at 1610, Mild Pain (Use First) Given 07/21/2023 1:28 PM [employer]ACHINE [employer] 50 mg Given 07/21/2023 5:45 AM [employer]ACHINE [employer] 50 mg Given 07/20/2023 8:19 PM [employer]ACH[facility] [employer] 50 mg documented in this encounter Active and Recently Administered Medications Times are shown in [employer]ACH[facility] [employer]. Scheduled Medication Order 07/23/2023 07/24/2023 07/25/2023 acetaminophen tablet 975 mg(Linked Group 1) 975 mg, Oral, TID, First dose on Sun07/22/23 at 1400, Until Discontinued 09 (Not Given (removes Due time) - Provider: Talisha Ferrari RN - Reason: NPO)1410 (Given - Provider: Talisha Ferrari RN)2018 (Given - Provider: Daya Curry RN) 0837 (Given - Provider: Skip Peterson, DYLON)1338 (Given - Provider: Sikp Peterson, DYLON)2000 (Given - Provider: Arlin Mclean RN) 0751 (Given - Provider: Candelaria Mejia RN) azithromycin (ZITHROMAX) 500 mg in NaCl 0.9% 250 mL IVPB (CANCELED) 500 mg, Indication (Select One): Infection - Suspected, SITE (Select all that apply): Lower Respiratory, Cultures Ordered? Yes, Intravenous, Q24H, 3 doses, First dose on Sun07/22/23 at 1630, Last dose on Sun07/24/23 at 1630 1820 (New Bag - Provider: Maryjo Montaño RN)1840 (Stopped - Provider: Maryjo Montaño RN)202 (Infusing - Provider: Daya Curry, DYLON)2200 (Infusion completed - Provider: Daya Curry RN) azithromycin (ZITHROMAX) tablet 500 mg (COMPLETED) 500 mg, Indication (Select One): Infection - Suspected, SITE (Select all that apply): Lower Respiratory, Cultures Ordered? Yes, Oral, DAILY, 1 dose, First dose on Sun07/25/23 at 0800 0752 (Given - Provider: Candelaria Mejia RN) cefTRIAXone (ROCEPHIN) 2 g in NaCl 0.9% 100 mL IVPB (CANCELED) 2 g, Indication (Select One): Infection - Suspected, SITE (Select all that apply): Lower Respiratory, Cultures Ordered? Yes, Intravenous, Q24H, 5 doses, First dose on Sun07/22/23 at 1630, Last dose on Sun07/26/23 at 1630 1727 (New Bag - Provider: Maryjo Montaño RN)1814 (Infusion completed - Provider: Maryjo Montaño RN) cefUROXime (CEFTIN) tablet 500 mg 500 mg, Indication (Select One): Infection - Confirmed, SITE (Select all that apply): Lower Respiratory, Cultures Ordered? No, Oral, BID, 5 doses, First dose on Sun07/24/23 at 1999, Last dose on Sun07/26/23 at 1999 2000 (Given - Provider: Arlin Mclean RN) 0751 (Given - Provider: Candelaria Mejia RN) DC MED REC REVIEW BY PHARMACY(Linked Group 2) Discharge Date: 07/25/2023, Discharge Location: Home, Anticipated Discharge Time: 10 am - 2 pm, Discharge Medication Orders: DC Med Orders Final, Does not apply, PROTOCOL, Starting on Sun07/25/23 at 1042, Until Sun07/25/23 at 1613 enoxaparin (LOVENOX) 40 mg/0.4 mL injection 40 mg 40 mg, Subcutaneous, DAILY, First dose on Sun07/24/23 at 1420, Until Discontinued 1705 (Given - Provider: Skip Peterson, DYLON) 075 (Given - Provider: Candelaria Mejia, DYLON) ferrous sulfate tablet 325 mg 325 mg, Oral, QOD, First dose on Sun07/24/23 at 0800, Until Discontinued 08 (Given - Provider: Skip Peterson, DYLON) GABApentin (NEURONTIN) capsule 300 mg 300 mg, Oral, TID, First dose on Sun07/24/23 at 2000, Until Discontinued 2000 (Given - Provider: Arlin Mclean RN) 075 (Given - Provider: Candelaria Mejia, DYLON) gadobutrol (GADAVIST) 1 mmol/mL injection 0-15 mL (COMPLETED) 0-15 mL, IV Push, RAD ONE TIME AUTO ACKNOWLEDGE, 1 dose, On Sun07/23/23 at 1050 1049 (Given - Provider: Raudel Henson, [employer]INEER) iron sucrose (VENOFER) 100 mg in NaCl 0.9% 100 mL IVPB - Non-Hemodialysis (COMPLETED) 100 mg, Intravenous, ONE TIME, On Sun07/23/23 at 1525 1621 (New Bag - Provider: Maryjo Montaño RN) lamoTRIgine (LaMICtal) tablet TABS 100 mg 100 mg, Oral, DAILY, First dose on Sun07/22/23 at 1615, Until Discontinued 0916 (Not Given (removes Due time) - Provider: Talisha Ferrari RN - Reason: NPO)1409 (Given - Provider: Talisha Ferrari RN) 0837 (Given - Provider: Skip Peterson RN) 0751 (Given - Provider: Candelaria Mejia RN) levothyroxine (SYNTHROID) tablet 75 mcg 75 mcg, Oral, DAILY BEFORE AM MEAL, First dose on Sun07/23/23 at 0730, Until Discontinued 0737 (Not Given (removes Due time) - Provider: Sondra Pierre RN - Reason: NPO - Comment: Strict NPO per order)1409 (Given - Provider: Talisha Ferrari RN) 0649 (Given - Provider: Sondra Pierre, DYLON) 0547 (Given - Provider: Arlin Mclean, DYLON) magnesium sulfate 2 g IVPB (COMPLETED) 2 g, Intravenous, ONE TIME, Administer over 1 Hours, On Sun07/25/23 at 0730 0758 (New Bag - Provider: Candelaria Mejia, RN)0858 (Infusion completed - Provider: Candelaria Mejia, DYLON) melatonin tablet 3 mg(Linked Group 3) 3 mg, Oral, Q24H, First dose on Sun07/22/23 at 1800, Until Discontinued 2018 (Given - Provider: Daya Curry RN) 1706 (Given - Provider: Skip Peterson, DYLON) mirtazapine (REMERON) tablet 15 mg 15 mg, Oral, BEDTIME, First dose on Sun07/23/23 at 2000, Until Discontinued 2019 (Given - Provider: Daya Curry RN) 2000 (Given - Provider: Arlin Mclean, DYLON) mometasone-formoterol (DULERA) 100-5 mcg/puff inhaler 2 puff 2 puff, Inhalation, BID, First dose on Sun07/22/23 at 2000, Until Discontinued 915 (Not Given (removes Due time) - Provider: Talisha Ferrari RN - Reason: NPO)2020 (Given - Provider: Daya Curry RN) 0839 (Given - Provider: Skip Peterson, DYLON)2002 (Given - Provider: Arlin Mclean, DYLON) 0752 (Given - Provider: Candelaria Mejia, DYLON) phosphate 71.6 mg/3.7 mEq/5 ML oral solution 30 mL (COMPLETED) 30 mL, Oral, TID, 3 doses, First dose on Sun07/24/23 at 1015, Last dose on Sun07/24/23 at 1999 1155 (Given - Provider: Skip Peterson, DYLON)1336 (Given - Provider: Skip Peterson, RN)2000 (Given - Provider: Arlin Mclean, DYLON) potassium chloride (K-DUR) tablet 20 mEq (COMPLETED) 20 mEq, Oral, ONE TIME, 1 dose, On Sun07/24/23 at 1255 1338 (Given - Provider: Skip Peterson, RN) potassium chloride (K-DUR) tablet 40 mEq (COMPLETED) 40 mEq, Oral, ONE TIME, 1 dose, On Sun07/24/23 at 2130 2158 (Given - Provider: Arlin Mclean, RN) rOPINIRole (REQUIP) tablet 0.25 mg 0.25 mg, Oral, BEDTIME, First dose on Sun07/23/23 at 2000, Until Discontinued 2019 (Given - Provider: Daya Curry RN) 2000 (Given - Provider: Arlin Mclean, RN) sodium phosphate 15 mmol in dextrose 5% IVPB (COMPLETED) 15 mmol, Intravenous, Q2H, First dose on Sun07/23/23 at 1030, Last dose on Sun07/23/23 at 1230 1128 (New Bag - Provider: Talisha Ferrari RN)1409 (New Bag - Provider: Talisha Ferrari RN) sodium phosphate 15 mmol in dextrose 5% IVPB (COMPLETED) 15 mmol, Intravenous, ONE TIME, On Sun07/24/23 at 1045 1158 (New Bag - Provider: Skip Peterson, DYLON) thiamine (VITAMIN B1) 500 mg in 50mL NS IVPB 500 mg, Intravenous, Q 8H, Administer over 60 Minutes, First dose on Sun07/22/23 at 2000, Last dose on Sun07/25/23 at 1400 0641 (Delayed (keeps Due time) - Provider: Sondra Pierre RN - Reason: Medication unavailable)0705 (New Bag - Provider: Sondra Pierre RN)0916 (Infusion completed - Provider: Talisha Ferrari RN)1400 (Due)1412 (Delayed (keeps Due time) - Provider: Talisha Ferrari RN - Reason: Lack of IV access)2200 (New Bag - Provider: Daya Curry RN)2338 (Infusion completed - Provider: Daya Curry RN) 0600 (New Bag - Provider: Sondra Pierre RN)0746 (Infusion completed - Provider: Sondra Pierre RN)1519 (Delayed (keeps Due time) - Provider: Skip Peterson RN - Reason: Other (must enter a comment) - Comment: IV infiltrated/ hurting)1707 (New Bag - Provider: Skip Peterson, DYLON)1930 (Infusion completed - Provider: Arlin Mclean, RN)2200 (New Bag - Provider: Arlin Mclean, RN)2306 (Infusion completed - Provider: Arlin Mclean RN) 0548 (New Bag - Provider: Arlin Mclean, DYLON)0652 (Infusion completed - Provider: Arlin Mclean, RN) topiramate (TOPAMAX) tablet 25 mg 25 mg, Oral, BEDTIME, First dose on Sun07/23/23 at 2000, Until Discontinued 2018 (Given - Provider: Daya Curry RN) 2000 (Given - Provider: Arlin Mclean, DYLON) VTE Anti Xa Monitoring Does not apply, PROTOCOL, Starting on Sun07/20/23 at 1700, Until Sun07/25/23 at 1613 Continuous Medication Order 07/23/2023 07/24/2023 07/25/2023 dextrose 5% - NaCl 0.9% 5-0.9 % infusion (CANCELED) at 75 mL/hr, Intravenous, CONTINUOUS, Starting on Sun07/22/23 at 0055, Until Sun07/23/23 at 1537 0711 (Infusing - Provider: Talisha Ferrari, DYLON) PRN Medication Order 07/23/2023 07/24/2023 07/25/2023 albuterol (ACCUNEB;VENTOLIN) 2.5mg/3mL inhalation solution 2.5 mg 2.5 mg, Inhalation, Q4H PRN, Starting on 07/21/23 at 1330, Until Sun07/25/23 at 1613, Wheezing loperamide (IMODIUM) capsule 2 mg 2 mg, Oral, Q3H PRN, Starting on Sun07/24/23 at 1506, Until Sun07/25/23 at 1613, Diarrhea 1706 (Given - Provider: Skip Peterson, DYLON) 0657 (Given - Provider: Arlin Mclean, DYLON) LORazepam (ATIVAN) 2 mg/mL injection 1 mg (COMPLETED) 1 mg, IV Push, ONE TIME PRN, 1 dose, Starting on 07/22/23 at 1140, Until Discontinued, Sedation, 20 minutes before heading to MRI 0913 (Given - Provider: Talisha Ferrari RN) ondansetron (ZOFRAN) 4 mg/2 mL injection 4 mg 4 mg, IV Push, Q6H PRN, Starting on Sun07/20/23 at 1703, Until Sun07/25/23 at 1613, Nausea/Vomiting (Use First) Linked Groups Order Group 1: acetaminophen tablet 975 mgJump to med 975 mg, Oral, TID, First dose on 07/22/23 at 1400, Until Discontinued Or acetaminophen (TYLENOL) 160 mg/ 5mL oral solution 975 mg (CANCELED) 975 mg, Feeding Tube, TID, First dose on 07/22/23 at 1400, Until Discontinued Group 2: DC MED REC REVIEW BY PHARMACYJump to med Discharge Date: 07/25/2023
Discharge Location: Home
Anticipated Discharge Time: 10 am - 2 pm
Discharge Medication Orders: DC Med Orders Final
Does not apply, PROTOCOL, Starting on Sun07/25/23 at 1042, Until Sun07/25/23 at 1613 And Discharge Med Rec Final Review by Pharmacy (COMPLETED) Routine, Order to be placed by provider after medications have been entered for discharge and are ready for review by Pharmacist. This order can be placed multiple times if changes or additions have been made to medications for discharge. Choose the Preliminary DC Med Rec review when placing orders prior to the day of discharge. Choose Final DC Med Rec when all medication changes have been entered. If DC Med Rec needed now, please page the Pharmacist covering the patient to inform them.
Discharge Date: 07/25/2023
Discharge Location: Home
Anticipated Discharge Time: 10 am - 2 pm Group 3: melatonin tablet 3 mgJump to med 3 mg, Oral, Q24H, First dose on 07/22/23 at 1800, Until Discontinued Or melatonin 1 mg/mL oral liquid 3 mg (CANCELED) 3 mg, Feeding Tube, Q24H, First dose on 07/22/23 at 1800, Until Discontinued documented in this encounter Additional Health Concerns Infection Onset Date Last Indicated Resolved Time SARS-CoV-2 Rule-Out 07/20/2023 07/20/2023 07/20/20 4:49 PM MACHINE [employer] AND [employer] SARS-CoV-2 07/20/2023 07/20/2023 documented as of this encounter
--- OUTSIDE RECORDS SUMMARY | 2023-08-02 17:22 | XMS_ITS | Referral Summary ---
Author Name Unknown Organization [facility] Address [address] [place] [id number] Care Team Providers Care Marketing Communication Manager Name Role Phone Shyanne Allen Primary Care Provider Allergies Active Allergy Reactions Criticality Noted Date Comments Aspirin Nausea Low 05/15/2009 Codeine Itching Low 05/15/2009 Duloxetine Visual Disturbance Medium 11/27/2016 Hydrocodone-Acetaminophen Itching Low 08/16/2007 Hydromorphone Itching Low 06/01/2010 Ibuprofen Itching Low 08/16/2007 [place] 02/16/2020 Mirabegron Itching Low 06/24/2015 Morphine Itching Low 02/03/2009 Pregabalin Itching,Visual Disturbance Low 7 Medications Medication Sig Dispensed Refills Start Date End Date Status traMADol (ULTRAM) 50 MG tablet Take 50 mg by mouth 3 times daily 0 01/03/2020 Active albuterol (PROAIR HFA/PROVENTIL HFA/VENTOLIN HFA) 108 (90 Base) MCG/ACT inhaler Inhale 2 puffs into the lungs every 4 hours as needed 0 08/16/2019 Active budesonide-formoterol (SYMBICORT) 160-4.5 MCG/ACT Inhaler Inhale 2 puffs into the lungs 2 times daily 0 04/17/2019 Active clobetasol (TEMOVATE) 0.05 % external ointment Apply 1 Units topically as needed 0 07/18/2018 Active Docusate Sodium (COLACE PO) Take 1 capsule by mouth 2 times daily as needed 0 Active gabapentin (NEURONTIN) 300 MG capsule Take 300 mg by mouth 3 times daily 0 12/03/2019 Active ipratropium - albuterol 0.5 mg/2.5 mg/3 mL (DUONEB) 0.5-2.5 (3) MG/3ML neb solution Inhale 3 mLs into the lungs every 6 hours as needed 0 04/22/2019 Active lamoTRIgine (LAMICTAL) 150 MG tablet Take 150 mg by mouth 2 times daily 0 01/27/2020 Active levothyroxine (SYNTHROID/LEVOTHROID) 75 MCG tablet Take 75 mcg by mouth daily 0 02/13/2020 Active hydrOXYzine (ATARAX) 10 MG tablet Take 10 mg by mouth 4 times daily as needed for itching 0 Active lidocaine 5% oint/silver sulfadiazine 1% cm/triamcinolone 0.1% cm (VIKTORIA PASTE) compounded ointment 0 Activ e naproxen sodium (ANAPROX) 220 MG tablet Take 440 mg by mouth 3 times daily 0 12/03/2018 Active prochlorperazine (COMPAZINE) 10 MG tablet Take 10 mg by mouth every 6 hours as needed 0 05/07/2019 Active ranitidine (ZANTAC) 150 MG tablet Take 150 mg by mouth 2 times daily 0 Active SUMAtriptan (IMITREX) 100 MG tablet Take 100 mg by mouth every 2 hours as needed 0 10/22/2019 Active topiramate (TOPAMAX) 25 MG tablet Take 50 mg by mouth At Bedtime 0 09/22/2019 Active triamcinolone (KENALOG) 0.1 % external cream Apply 1 Units topically as needed 0 03/03/2019 Active Active Problems No known active problems Social History Tobacco Use Types Packs/Day Years Used Date Smoking Tobacco: Never Assessed Sex and Gender Information Value Date Recorded Sex Assigned at Not on file Gender Identity Not on file Sexual Orientation Not on file Last Filed Vital Signs Vital Sign Reading Time Taken Comments Blood Pressure 115/71 02/16/2020 12:36 PM CDT Pulse 68 02/16/2020 12:36 PM CDT Temperature 36.2 ??C (97.2 ??F) 02/16/2020 12:36 PM C DT Respiratory Rate 16 02/16/2020 12:36 PM CDT Oxygen Saturation - - Inhaled Oxygen Concentration - - Weight - - Height - - Body Mass Index - - Plan of Treatment Not on file Care Teams Marketing Communication Manager Relationship Specialty Start Date End Date Shyanne Allen [address] [facility] [place] [id number] PCP - General 12/24/12
--- OUTSIDE RECORDS SUMMARY | 2023-08-02 17:22 | XMS_ITS | Clinical Summary ---
Author Name Unknown Organization [facility] Address [address] [place] [id number] Care Team Providers Care Pearl Restorer Name Role Phone Shyanne Allen Primary Care Provider Allergies Active Allergy Reactions Criticality Noted Date Comments Aspirin Nausea Low 05/15/2009 Codeine Itching Low 05/15/2009 Duloxetine Visual Disturbance Medium 11/27/2016 Hydrocodone-Acetaminophen Itching Low 08/16/2007 Hydromorphone Itching Low 06/01/2010 Ibuprofen Itching Low 08/16/2007 [place] 02/16/2020 Mirabegron Itching Low 06/24/2015 Morphine Itching [...] of Treatment Not on file Care Teams Pearl Restorer Relationship Specialty Start Date End Date Shyanne Allen [address] [facility] [place] [id number] PCP - General 12/24/12
--- OUTSIDE RECORDS SUMMARY | 2023-08-02 17:22 | XMS_ITS | Clinical Summary ---
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 softtissue algorithms. COMPARISON: CT head dated 2022. FINDINGS: No acute intracranial hemorrhage. The tripathi-white matter interface ispreserved. The ventricles are normal in size. The skull base and calvarium are within normal limits. Orbits areunremarkable. Paranasal sinuses and mastoid air cells are predominantlyclear. IMPRESSION: No acute intracranial abnormality. Please note that all CT scans at this facility use dose modulation,iterative reconstruction, and/or weight-based dosing when appropriate toreduce radiation dose to as low as reasonably achievable. Dictated by Gab Gibson MD @ 06/12/2023 2:11:17 PM (Electronically Signed) Dov Thomas NP CT from Last 3 Months Advance Directives Documents on File Type Date Recorded Patient [employer] Expl anation Power of Import/Export Agent 08/24/2021 8:41 AM Healthcare Directive 12/14/2012 013 Latest Code Status on File Code Status Date Activated Date Inactivated Comments DNR 2022 2:20 PM 10/12/2022 7:53 PM Question Answer Comments Code Status Discussion: Reviewed Preferences Code Status History Code Status Date Activated Date Inactivated Comments Full Code 2022 1:38 PM 2022 2:20 PM Question Answer Comments Code Status Discussion: Reviewed Preferences Full Code 09/26/2022 11:06 AM 09/29/2022 12:58 PM Question Answer Comments Code Status Discussion: Reviewed Preferences Full Code 09/25/2022 11:57 PM 09/26/2022 11:06 AM Question Answer Comments Code Status Discussion: Unable to Assess Preferences, Provider to review later Full Code 09/17/2022 3:05 PM 09/20/2022 2:35 PM Question Answer Comments Code Status Discussion: Reviewed Preferences Care Teams Regional Facilities Manager Relationship Specialty Start Date End Date Shyanne Ash MD [address] [facility] [place] [address] PCP - General Internal Medicine 08/23/22 [facility] [place] [address] [address] 09/29/22 [facility] [place] [address] [place] [id number] 07/25/23
== END 2023-07-20 13:10 | disposition home or self-care (01) ==
LOC: AMB 08-02 17:18
PROVIDERS: PCP Internal Medicine; Visit Provider Family Medicine
DX: S09.90XA Unspecified injury of head, initial encounter (principal); V43.62XA Car passenger injured in collision with other type car in traffic accident, initial encounter; Y92.410 Unspecified street and highway as the place of occurrence of the external cause
CPT/HCPCS: A0425; A0427